=== PATIENT | male | born 1975 | race Caucasian/White ===

== ENCOUNTER 2017-07-27 17:43 | Inpatient (IN) | payer OTHER, MEDICARE, MEDICAID ==
[2017-07-27] MEDS ORDERED: Sodium Chloride 0.9% 10 ML Syringe FLUSH PRN (18:14)
--- NOTE | 2017-07-27 19:00 | EDM.PDOC ---
ED HPI GENERAL MEDICAL PROBLEM - General Chief Complaint: Skin Complaint Stated Complaint: [facility] Time Seen by Provider: 07/27/17 17:55 Source of Information: Reports: Patient, EMS History Limitations: Reports: No Limitations - History of Present Illness INITIAL COMMENTS - FREE TEXT/NARRATIVE: The patient presents with right leg swelling and erythema. He says he first noticed it yesterday. He has chills but no fever. He has a history of a cervical spine injury. He has partial paralysis. He can walk with assistance such as a walker. He has no chest pain, shortness of breath, abdominal pain, nausea or vomiting. The patient says he has had infections before. The first time was in 2009. He has moderate to severe edema to the right leg with erythema that extends up his leg from his foot to his lower lateral thigh. There is some oozing and a bad order. Onset: Gradual Duration: Day(s): Location: Reports: Lower Extremity, Right Improves with: Reports: None Worsens with: Reports: None Associated Symptoms: Reports: Fever/Chills. Denies: Chest Pain, Cough, Diaphoresis, Headaches, Nausea/Vomiting, Shortness of Breath Right Leg Pain Score (Numeric/FACES): 4 - Related Data Allergies Allergy/AdvReac Type Severity Reaction Status Date / Time No Known Allergies Allergy Verified 07/27/17 17:53 Home Meds: Home Meds Aspirin [Halfprin] 81 mg PO DAILY 07/27/17 [History] Baclofen [Lioresal Intrathecal] 07/27/17 [History] Multivitamin with Minerals [Multiple Vitamin] 07/27/17 [History] Past Medical History Musculoskeletal History: Reports: Back Pain, Chronic Dermatologic History: Reports: Chronic Cellulitis - Past Surgical History Neurological Surgical History: Reports: C-Spine Other Neurological Surgeries/Procedures: patient had injury in 2005 to his c3-c7 Social & Family History - Tobacco Use Smoking Status *Q: Former Smoker Used Tobacco, but Quit: Yes Month/Year Tobacco Last Used: 1 ED ROS GENERAL - Review of Systems Review Of Systems: See Below Constitutional: Reports: Chills HEENT: Reports: No Symptoms Respiratory: Reports: No Symptoms Cardiovascular: Reports: No Symptoms Endocrine: Reports: No Symptoms GI/Abdominal: Reports: No Symptoms : Reports: No Symptoms Musculoskeletal: Reports: Other (Edema and erythema of the right leg) ED EXAM, SKIN/RASH Exam: See Below Exam Limited By: No Limitations General Appearance: Alert, No Apparent Distress Ears: Normal External Exam Nose: Normal Inspection Head: Atraumatic, Normocephalic Neck: Normal Inspection Respiratory/Chest: No Respiratory Distress, Lungs Clear, Normal Breath Sounds Cardiovascular: Regular Rate, Rhythm, No Edema, No Murmur GI/Abdominal: Soft, Non-Tender, No Organomegaly, No Mass Back Exam: Normal Inspection Extremities: Other (Moderate to severe edema of the right leg with erythema extending from his foot up to his lower lateral thigh. There is weeping from his leg and a bad oder.) Course - Vital Signs Last Recorded V/S: Last Vital Signs Temp 101.8 F H 07/27/17 17:56 Pulse 106 H 07/27/17 17:56 Resp 20 07/27/17 17:56 BP 145/95 H 07/27/17 17:56 Pulse Ox 94 L 07/27/17 17:56 - Orders/Labs/Meds Orders: Active Orders 24 hr Category Date Time Status Peripheral IV Care [RC] . DIRECTED Care 07/27/17 18:15 Active CBC WITH AUTO DIFF [HEME] Stat Lab 07/27/17 18:14 Ordered COMPREHENSIVE METABOLIC PN,CMP [CHEM] Stat Lab 07/27/17 18:14 Ordered CULTURE BLOOD [BC] Stat Lab 07/27/17 18:15 Ordered CULTURE BLOOD [BC] Stat Lab 07/27/17 18:15 Ordered Sodium Chloride 0.9% [Normal Saline] 1,000 ml Med 07/27/17 18:15 Active IV ASDIRECTED Sodium Chloride 0.9% [Saline Flush] Med 07/27/17 18:14 Active 10 ml FLUSH ASDIRECTED PRN Blood Culture x2 Reflex Set [OM.PC] Stat Oth 07/27/17 18:15 Ordered Peripheral IV Insertion Adult [OM.PC] Stat Oth 07/27/17 18:14 Ordered Medication Orders Sodium Chloride (Normal Saline) 1,000 mls @ 125 mls/hr IV ASDIRECTED GEORGINA Sodium Chloride (Saline Flush) 10 ml FLUSH ASDIRECTED PRN PRN Reason: Keep Vein Open Meds: Medications Generic Name Dose Route Start Last Admin Trade Name Freq PRN Reason Stop Dose Admin Sodium Chloride 1,000 mls @ 125 mls/hr 07/27/17 18:15 Normal Saline IV ASDIRECTED GEORGINA Sodium Chloride 10 ml 07/27/17 18:14 Saline Flush FLUSH ASDIRECTED PRN Keep Vein Open - Re-Assessments/Exams Free Text/Narrative Re-Assessment/Exam: 07/27/17 19:06 I ordered an IV NS at 125mL/hr, blood cultures, labs and vancomycin. My nurses are having trouble getting an IV. Our EXTENSION COURSE COUNSELOR was called in to help. I will give him a dose of 2gram IV. 07/27/17 19:[address] Ramachandran and he agreed to the admission. He requested a PICC line be inserted. I will let the EXTENSION COURSE COUNSELOR know when he comes in. Departure - Departure Time of Disposition: 19:20 Disposition: Admitted As Inpatient 64 Condition: Fair Clinical Impression: Cellulitis Qualifiers: Site of cellulitis: extremity Site of cellulitis of extremity: lower extremity Laterality: right Qualified Code(s): L03.115 - Cellulitis of right lower limb - Discharge Information Referrals: Carlos Alicia MD [Primary Care Provider] - - My Orders Last 24 Hours: My Active Orders 07/27/17 18:14 CBC WITH AUTO DIFF [HEME] Stat COMPREHENSIVE METABOLIC PN,CMP [CHEM] Stat Sodium Chloride 0.9% [Saline Flush] 10 ml FLUSH ASDIRECTED PRN Peripheral IV Insertion Adult [OM.PC] Stat 07/27/17 18:15 Peripheral IV Care [RC] . DIRECTED CULTURE BLOOD [BC] Stat CULTURE BLOOD [BC] Stat Sodium Chloride 0.9% [Normal Saline] 1,000 ml IV ASDIRECTED Blood Culture x2 Reflex Set [OM.PC] Stat - Assessment/Plan Last 24 Hours: My Active Orders 07/27/17 18:14 CBC WITH AUTO DIFF [HEME] Stat COMPREHENSIVE METABOLIC PN,CMP [CHEM] Stat Sodium Chloride 0.9% [Saline Flush] 10 ml FLUSH ASDIRECTED PRN Peripheral IV Insertion Adult [OM.PC] Stat 07/27/17 18:15 Peripheral IV Care [RC] . DIRECTED CULTURE BLOOD [BC] Stat CULTURE BLOOD [BC] Stat Sodium Chloride 0.9% [Normal Saline] 1,000 ml IV ASDIRECTED Blood Culture x2 Reflex Set [OM.PC] Stat
[2017-07-27] MEDS ORDERED: Acetaminophen 325 MG Tab PO ONE (19:04)
--- NOTE | 2017-07-27 19:51 | PCM.HP ---
H&P History of Present Illness - General Date of Service: 07/27/17 Admit Problem/Dx: SSTI/Cellulitis Source of Information: Patient, Family, Old Records, Provider, RN Notes Reviewed History Limitations: Reports: Physical Impairment - History of Present Illness Initial Comments - Free Text/Narative: This is a 41 yo morbidly obese white male with past medical hx/o spinal injury on baclofen pump who comes in for evaluation of worsening leg edema and erythema. Patient carries no hx/o diabetes or immuno-suppressed state. His initial workup in the emergency department shows a CBC remarkable for WBC of 19.86, hemoglobin of 12.9, hematocrit of 39.6, RDW of 45.3, neutrophils of 81.8%, lymphocytes of 6.9%, and eosinophils 0.1%. His chemistry is remarkable for sodium of 135, total bilirubin of 2.7, AST of 51, CRP of 38.9, total protein of 8.3, and albumin of 2.1. He is being admitted for lower extremity cellulitis. Right Leg Pain Score (Numeric/FACES): 4 - Related Data Allergies/Adverse Reactions: Allergies Allergy/AdvReac Type Severity Reaction Status Date / Time No Known Allergies Allergy Verified 07/27/17 20:28 Home Medications: Home Meds Aspirin [Halfprin] 81 mg PO DAILY 07/27/17 [History] Baclofen [Lioresal Intrathecal] 0.5 mg IMPLANT ASDIRECTED 07/27/17 [History] Multivitamin with Minerals [Multiple Vitamin] 1 tab PO DAILY 07/27/17 [History] Past Medical History Musculoskeletal History: Reports: Back Pain, Chronic Dermatologic History: Reports: Chronic Cellulitis - Past Surgical History Neurological Surgical History: Reports: C-Spine Other Neurological Surgeries/Procedures: patient had injury in 2005 to his c3-c7 Social & Family History - Tobacco Use Smoking Status *Q: Former Smoker Used Tobacco, but Quit: Yes Month/Year Tobacco Last Used: 1 H&P Review of Systems - Review of Systems: Review Of Systems: See Below General: Reports: Fever, Chills. Denies: Malaise, Weakness, Fatigue, Decreased Appetite HEENT: Reports: No Symptoms Pulmonary: Denies: Shortness of Breath Cardiovascular: Reports: Edema. Denies: Chest Pain, Palpitations, Dyspnea on Exertion, Lightheadedness, Blood Pressure Problem Gastrointestinal: Denies: Abdominal Pain, Decreased Appetite, Nausea, Vomiting Genitourinary: Reports: No Symptoms Musculoskeletal: Reports: No Symptoms Skin: Reports: Erythema, Wound, Change in Color. Denies: Cyanosis, Jaundice, Mottled, Diaphoresis Psychiatric: Denies: Depression, Anxiety, Agitation, Hallucinations Neurological: Reports: Difficulty Walking, Gait Disturbance. Denies: Confusion , Pre-Existing Deficit, Weakness Hematologic/Lymphatic: Reports: No Symptoms Immunologic: Reports: No Symptoms Exam - Exam Exam: See Below - Vital Signs Vital Signs: Last Vital Signs Temp 38.8 C H 07/27/17 17:56 Pulse 106 H 07/27/17 17:56 Resp 20 07/27/17 17:56 BP 145/95 H 07/27/17 17:56 Pulse Ox 94 L 07/27/17 17:56 Weight: 204.117 kg - Exam General: Alert, Oriented, Cooperative, Other (Morbidly Obese). No: Mild Distress HEENT: Conjunctiva Clear, EACs Clear, EOMI, Hearing Intact, Mucosa Moist & [place] , Nares Patent, Normal Nasal Septum, Posterior Pharynx Clear, Pupils Equal, Pupils Reactive Neck: Supple, Trachea Midline, +2 Carotid Pulse wo Bruit, Full Range of Motion Lungs: Clear to Auscultation, Normal Respiratory Effort Cardiovascular: Regular Rate, Regular Rhythm GI/Abdominal Exam: Normal Bowel Sounds, Soft, Non-Tender, No Organomegaly, No Distention, No Abnormal Bruit, No Mass, Other (Obese; baclofen pump on lower abdomen ) (Male) Exam: Other (foul smeel for pelvic region) Back Exam: Normal Inspection, Decreased Range of Motion Extremities: Normal Range of Motion (left), Normal Capillary Refill (left), Leg Pain, Limited Range of Motion (right leg), Increased Warmth (right leg: weeping) , Redness (right leg), Other (toe nails are brittle and thickened). No: Normal Inspection Peripheral Pulses: 2+: Posterior Tibial (L), Posterior Tibial (R), Dorsalis Pedis (L), Dorsalis Pedis (R) Skin: Warm, Dry, Intact, Moist (inguinal and rosey-rectal region; with foul smell ) Neuro Extensive - Mental Status: Oriented x3, Normal Mood/Affect, Memory Intact Neuro Extensive - Motor, Sensory, Reflexes: CN II-XII Intact (limited but grossly intact) Psychiatric: Alert, Normal Affect, Normal Mood - Patient Data Result Diagrams: 07/28/17 05:57 07/28/17 05:57 *Q Meaningful Use (ADM) - VTE *Q VTE Criteria *Q: - Stroke *Q Stroke Criteria *Q: - AMI *Q AMI Criteria *Q: Problem List Initiated/Reviewed/Updated: Yes Orders Last 24hrs: Active Orders 24 hr Category Date Time Status Peripheral IV Care [RC] . DIRECTED Care 07/27/17 18:15 Active CBC WITH AUTO DIFF [HEME] Stat Lab 07/27/17 18:14 Ordered COMPREHENSIVE METABOLIC PN,CMP [CHEM] Stat Lab 07/27/17 18:14 Ordered CULTURE BLOOD [BC] Stat Lab 07/27/17 18:15 Ordered CULTURE BLOOD [BC] Stat Lab 07/27/17 18:15 Ordered Sodium Chloride 0.9% [Normal Saline] 1,000 ml Med 07/27/17 18:15 Active IV ASDIRECTED Sodium Chloride 0.9% [Saline Flush] Med 07/27/17 18:14 Active 10 ml FLUSH ASDIRECTED PRN Vancomycin 2 gm Med 07/27/17 19:15 Active Sodium Chloride 0.9% [Normal Saline] 250 ml IV ONETIME Blood Culture x2 Reflex Set [OM.PC] Stat Oth 07/27/17 18:15 Ordered Peripheral IV Insertion Adult [OM.PC] Stat Oth 07/27/17 18:14 Ordered Medication Orders Sodium Chloride (Normal Saline) 1,000 mls @ 125 mls/hr IV ASDIRECTED GEORGINA Vancomycin HCl 2 gm/ Sodium (Chloride) 250 mls @ 250 mls/hr IV ONETIME ONE Stop: 07/27/17 20:14 Sodium Chloride (Saline Flush) 10 ml FLUSH ASDIRECTED PRN PRN Reason: Keep Vein Open Assessment/Plan Comment:: Assessment/Plan: Acute: SSTI/Cellulitis - Risk Factors: Immobile the most part and Poor Hygiene - He is not diabetic - Weeping, diffusely red and edematous right leg - IV Vancomycin 1 gram BID (trough level goal bet 15-20) - Elevate Leg and supportive care - Duplex U/S to r/o DVT - DVT PPx: Lovenox SubQ x1 now Leukocytosis - 2/2 Above infection - WBC 19.86; CRP 38.9 Hypoalbuminemia - Albumin 2.1 - Dietary consult Morbid Obesity - BMI 56.2 - Thyroid panel and A1C check - Dietary for weight management Spinal Injury with Chronic Back Spasm - On Baclofen pump Plan: Admit to the floor Resume Home Meds if there are any Routine AM Labs PT for wound care Fall Risk GI PPx: H2B SW/CM for d/c planning Additional orders as above Code status: 1
[2017-07-27] MEDS: Sodium Chloride 0.9% 1,000 ML IV SCH (20:25)
--- NOTE | 2017-07-27 20:34 | PCM.SN ---
- Free Text/Narrative Note: 1913 in room 5 ER for IV request. 22 ga. start right anticubital good blood return good flush. 24. ga. start left foot good blood return good flush. 12 ml blood collected for lab. IVs secured. Out of room at 2027. Report to CHARU.
[2017-07-27] MEDS ORDERED: Sodium Chloride 0.9% 500 ML ONE (20:35)
[2017-07-27] MEDS ORDERED: Vancomycin 2 GM in Sodium Chloride 0.9% 500 ML IV ONE (20:45)
[2017-07-27] MEDS ORDERED: Albuterol/Ipratropium 3.0-0.5 MG/3 ML Neb Soln NEB PRN (20:50)
[2017-07-27] MEDS ORDERED: Metoprolol Tartrate 5 MG/5 ML SDV IVPUSH PRN (20:50)
[2017-07-27] MEDS ORDERED: Bisacodyl 5 MG Tab PO PRN (20:50)
[2017-07-27] MEDS ORDERED: LORazepam 2 MG/ML SDV IVPUSH PRN (20:50)
[2017-07-27] MEDS ORDERED: Ondansetron 4 MG/2 ML SDV IV PRN (20:50)
[2017-07-27] MEDS ORDERED: hydrALAZINE 20 MG/ML SDV IVPUSH PRN (20:50)
[2017-07-27] MEDS ORDERED: Polyethylene Glycol 3350 Powder 17 GM Packet PO PRN (20:50)
[2017-07-27] MEDS ORDERED: Temazepam 15 MG Cap PO PRN (20:50)
[2017-07-27] MEDS ORDERED: Promethazine 12.5 MG in Sodium Chloride 0.9% 50 ML IV PRN (20:50)
[2017-07-27] MEDS ORDERED: HYDROmorphone 1 MG/ML Syringe IVPUSH PRN (20:50)
[2017-07-27] MEDS ORDERED: Acetaminophen 325 MG Tab PO PRN (20:50)
[2017-07-27] MEDS ORDERED: LORazepam 2 MG/ML SDV IV PRN (20:50)
[2017-07-27] MEDS ORDERED: Docusate Sodium 100 MG Cap PO PRN (20:50)
[2017-07-27] MEDS ORDERED: Acetaminophen/HYDROcodone 325-5 MG Tab PO PRN (20:50)
[2017-07-27] MEDS ORDERED: Enoxaparin 40 MG/0.4 ML Syringe SUBCUT ONE (21:20)
[2017-07-27] MEDS ORDERED: Bumetanide 1 MG/4 ML MDV IVPUSH ONE (21:37)
--- NOTE | 2017-07-28 06:45 | US ---
Right lower extremity deep venous ultrasound: Duplex and color flow imaging was obtained of the right common femoral, proximal greater saphenous, superficial femoral, popliteal, posterior tibial and peroneal veins. Left common femoral vein was also evaluated. Subcutaneous edema is noted within the right calf. Several lymph nodes are seen within the right calf which are likely reactive. Several lymph nodes are noted within the right inguinal region which are also felt to be reactive. Normal phasic flow, augmentation and compression are seen. Impression: 1. Lymph nodes within the right groin and right calf believed to be reactive. 2. Subcutaneous edema within the calf. 3. No evidence of acute deep venous thrombosis within the right lower extremity or within the left common femoral vein. Diagnostic code #2 I agree with preliminary report issued by [facility] ([facility] preliminary report dictated on 07/28/17, 12:34 AM Central Time)
[2017-07-28] MEDS ORDERED: Vancomycin 2 GM in Sodium Chloride 0.9% 500 ML IV SCH (07:00)
[2017-07-28] MEDS ORDERED: Vancomycin 500 MG SDV IV SCH (07:00)
[2017-07-28] MEDS ORDERED: Bumetanide 1 MG/4 ML MDV IVPUSH ONE ×2 (07:00→23:30)
[2017-07-28] MEDS ORDERED: Enoxaparin 40 MG/0.4 ML Syringe SUBCUT SCH (09:00)
--- NOTE | 2017-07-28 09:01 | PCM.PN ---
- General Info Date of Service: 07/28/17 Admission Dx/Problem (Free Text): SSTI/Cellulitis Subjective Update: Follow Up Functional Status: Reports: Pain Controlled, Tolerating Diet, Urinating - Review of Systems General: Denies: Fever, Weakness, Fatigue, Malaise, Chills HEENT: Reports: No Symptoms Pulmonary: Denies: Shortness of Breath, Pleuritic Chest Pain, Wheezing Cardiovascular: Reports: Edema. Denies: Chest Pain, Palpitations, Dyspnea on Exertion, Lightheadedness Gastrointestinal: Denies: Abdominal Pain, Nausea, Vomiting Genitourinary: Reports: No Symptoms Musculoskeletal: Reports: No Symptoms Skin: Denies: Cyanosis, Jaundice, Mottled, Pallor, Diaphoresis Neurological: Reports: Pre-Existing Deficit, Difficulty Walking, Weakness, Gait Disturbance. Denies: Confusion Psychiatric: Denies: Depression, Anxiety, Agitation, Hallucinations Systems Review Comment:: No significant overnight or acute issues. He slept pretty good last night. He has no acute issues. - Patient Data Vitals - Most Recent: Last Vital Signs Temp 37.3 C 07/28/17 08:09 Pulse 88 07/28/17 08:09 Resp 24 H 07/28/17 08:09 BP 147/74 H 07/28/17 08:09 Pulse Ox 95 07/28/17 08:09 Weight - Most Recent: 204.117 kg I&O - Last 24 Hours: Intake & Output 07/27/17 07/28/17 07/28/17 22:59 06:59 14:59 Intake Total 1820 Output Total 800 Balance 1020 Lab Results Last 24 Hours: Laboratory Results - last 24 hr 07/27/17 07/27/17 07/28/17 Range/Units 21:10 21:10 05:57 WBC 18.92 H (4.23-9.07) K/mm3 RBC 4.34 L (4.63-6.08) M/mm3 Hgb 11.8 L (13.7-17.5) gm/L Hct 35.6 L (40.1-51.0) % MCV 82.0 (79.0-92.2) fl MCH 27.2 (25.7-32.2) pg MCHC 33.1 (32.2-35.5) g/dl RDW Std Deviation 45.3 H (35.1-43.9) fL Plt Count 270 (163-337) K/mm3 MPV 11.9 (9.4-12.3) fl Neut % (Auto) 81.0 H (34.0-67.9) % Lymph % (Auto) 8.1 L (21.8-53.1) % [place] % (Auto) 9.7 (5.3-12.2) % Eos % (Auto) 0.4 L (0.8-7.0) Baso % (Auto) 0.2 (0.1-1.2) % Neut # (Auto) 15.31 H (1.78-5.38) K/mm3 Lymph # (Auto) 1.53 (1.32-3.57) K/mm3 [place] # (Auto) 1.84 H (0.30-0.82) K/mm3 Eos # (Auto) 0.08 (0.04-0.54) K/mm3 Baso # (Auto) 0.04 (0.01-0.08) K/mm3 Manual Slide Review Abnormal smear Sodium (136-145) mEq/L Potassium (3.5-5.1) mEq/L Chloride (98-107) mEq/L Carbon Dioxide (21-32) mEq/L Anion Gap (5-15) BUN (7-18) mg/dL Creatinine (0.7-1.3) mg/dL Est Cr Clr Drug Dosing mL/min Estimated GFR (MDRD) (>60) mL/min BUN/Creatinine Ratio (14-18) Glucose (74-106) mg/dL Hemoglobin A1c 6.10 (4.50-6.20) % Calcium (8.5-10.1) mg/dL Magnesium (1.8-2.4) mg/dl C-Reactive Protein 38.9 H* (<1.0) mg/dL Free T4 1.56 H (0.76-1.46) ng/dL TSH 3rd Generation 1.753 (0.358-3.74) uIU/mL 07/28/17 Range/Units 05:57 WBC (4.23-9.07) K/mm3 RBC (4.63-6.08) M/mm3 Hgb (13.7-17.5) gm/L Hct (40.1-51.0) % MCV (79.0-92.2) fl MCH (25.7-32.2) pg MCHC (32.2-35.5) g/dl RDW Std Deviation (35.1-43.9) fL Plt Count (163-337) K/mm3 MPV (9.4-12.3) fl Neut % (Auto) (34.0-67.9) % Lymph % (Auto) (21.8-53.1) % [place] % (Auto) (5.3-12.2) % Eos % (Auto) (0.8-7.0) Baso % (Auto) (0.1-1.2) % Neut # (Auto) (1.78-5.38) K/mm3 Lymph # (Auto) (1.32-3.57) K/mm3 [place] # (Auto) (0.30-0.82) K/mm3 Eos # (Auto) (0.04-0.54) K/mm3 Baso # (Auto) (0.01-0.08) K/mm3 Manual Slide Review Sodium 138 (136-145) mEq/L Potassium 2.8 L (3.5-5.1) mEq/L Chloride 101 (98-107) mEq/L Carbon Dioxide 28 (21-32) mEq/L Anion Gap 11.8 (5-15) BUN 13 (7-18) mg/dL Creatinine 1.0 (0.7-1.3) mg/dL Est Cr Clr Drug Dosing 113.84 mL/min Estimated GFR (MDRD) > 60 (>60) mL/min BUN/Creatinine Ratio 13.0 L (14-18) Glucose 113 H (74-106) mg/dL Hemoglobin A1c (4.50-6.20) % Calcium 8.4 L (8.5-10.1) mg/dL Magnesium 1.9 (1.8-2.4) mg/dl C-Reactive Protein 36.3 H* (<1.0) mg/dL Free T4 (0.76-1.46) ng/dL TSH 3rd Generation (0.358-3.74) uIU/mL Samir Results Last 24 Hours: Microbiology 07/27/17 21:20 Wound Culture - Preliminary Leg, Right Med Orders - Current: Current Medications Acetaminophen (Tylenol) 650 mg PO Q4H PRN PRN Reason: Pain (Mild 1-3)/fever Hydrocodone Bitart/Acetaminophen ([place] 325-5 Mg) 1 tab PO Q4H PRN PRN Reason: Pain (moderate 4-6) Albuterol/Ipratropium (Duoneb 3.0-0.5 Mg/3 Ml) 3 ml NEB Q4H PRN PRN Reason: Shortness Of Breath/wheezing Bisacodyl (Dulcolax) 5 mg PO DAILY PRN PRN Reason: Constipation Docusate Sodium (Colace) 100 mg PO BID PRN PRN Reason: Constipation Enoxaparin Sodium (Lovenox) 40 mg SUBCUT DAILY [facility] Last Admin: 07/28/17 08:27 Dose: 40 mg Hydralazine HCl (Apresoline) 20 mg IVPUSH Q4H PRN PRN Reason: Hypertension Hydromorphone HCl (Dilaudid) 1 mg IVPUSH Q4H PRN PRN Reason: Pain (severe 7-10) Sodium Chloride (Normal Saline) 1,000 mls @ 125 mls/hr IV ASDIRECTED [facility] Last Admin: 07/27/17 20:25 Dose: 125 mls/hr Promethazine HCl 12.5 mg/ (Sodium Chloride) 50.5 mls @ 100 mls/hr IV Q6H PRN PRN Reason: Nausea/Vomiting Vancomycin HCl 2 gm/ Sodium (Chloride) 500 mls @ 250 mls/hr IV Q12H [facility] Last Admin: 07/28/17 08:16 Dose: 250 mls/hr Lorazepam (Ativan) 2 mg IVPUSH Q4H PRN PRN Reason: Seizures Lorazepam (Ativan) 1 mg IV Q6H PRN PRN Reason: Anxiety Magnesium Sulfate (Pharmacy To Dose - Magnesium Replacement) 0 dose .XX ASDIRECTED PRN PRN Reason: RX TO WATCH MAG LEVELS Metoprolol Tartrate (Lopressor) 5 mg IVPUSH Q4H PRN PRN Reason: Tachycardia Ondansetron HCl (Zofran) 4 mg IV Q6H PRN PRN Reason: Nausea/Vomiting Polyethylene Glycol (Miralax) 17 gm PO DAILY PRN PRN Reason: Constipation Potassium Chloride (Pharmacy To Dose - Potassium Replacement) 0 dose .XX ASDIRECTED PRN PRN Reason: RX TO WATCH K LEVELS Senna/Docusate Sodium (Senna Plus) 1 tab PO BID PRN PRN Reason: Constipation Sodium Chloride (Saline Flush) 10 ml FLUSH ASDIRECTED PRN PRN Reason: Keep Vein Open Last Admin: 07/27/17 20:25 Dose: 10 ml Temazepam (Restoril) 15 mg PO BEDTIME PRN PRN Reason: Sleep Vancomycin HCl (Pharmacy To Dose - Vancomycin) 0 dose .XX ASDIRECTED PRN PRN Reason: RX TO DOSE VANCOMYCIN Discontinued Medications Acetaminophen (Tylenol) 975 mg PO NOW ONE Stop: 07/27/17 19:05 Last Admin: 07/27/17 20:24 Dose: 975 mg Bumetanide (Bumex) 0.5 mg IVPUSH ONETIME ONE Stop: 07/28/17 07:01 Last Admin: 07/28/17 08:25 Dose: 0.5 mg Bumetanide (Bumex) 1 mg IVPUSH ONETIME ONE Stop: 07/27/17 21:38 Last Admin: 07/27/17 22:25 Dose: 1 mg Enoxaparin Sodium (Lovenox) 40 mg SUBCUT DAILY [facility] Enoxaparin Sodium (Lovenox) 40 mg SUBCUT ONETIME ONE Stop: 07/27/17 21:21 Last Admin: 07/27/17 22:23 Dose: 40 mg Vancomycin HCl 2 gm/ Sodium (Chloride) 250 mls @ 250 mls/hr IV ONETIME ONE Stop: 07/27/17 20:14 Last Admin: 07/27/17 20:44 Dose: Not Given Vancomycin HCl 2 gm/ Sodium (Chloride) 500 mls @ 250 mls/hr IV ONETIME ONE Stop: 07/27/17 22:44 Last Admin: 07/27/17 20:35 Dose: 250 mls/hr Sodium Chloride (Normal Saline) Confirm Administered Dose 500 mls @ as directed .ROUTE .STK-MED ONE Stop: 07/27/17 20:36 Vancomycin HCl (Vancomycin) 3,061.755 mg 15 mg/kg (3061.755 mg) IV Q12H [facility] - Exam General: Alert, Oriented, Cooperative, No Acute Distress, Other (Obese) HEENT: Pupils Equal, Pupils Reactive, EOMI, Mucous Membr. Moist/[place] Neck: Supple, Trachea Midline, No JVD Lungs: Clear to Auscultation, Normal Respiratory Effort Cardiovascular: Regular Rate, Regular Rhythm GI/Abdominal Exam: Normal Bowel Sounds, Soft, Non-Tender, No Organomegaly, No Distention, No Abnormal Bruit, Other (baclofen pump on right lower abdomen) (Male) Exam: Deferred Back Exam: Normal Inspection, Decreased Range of Motion Extremities: Normal Range of Motion (left lower extremity), Non-Tender, Pedal Edema, Limited Range of Motion (right lower extremity), Increased Warmth, Redness Peripheral Pulses: 2+: Posterior Tibial (L), Dorsalis Pedis (L) Skin: Warm, Dry, Intact Wound/Incisions: Drainage, Erythema Improving Neurological: No New Focal Deficit. No: Normal Gait Psy/Mental Status: Alert, Normal Affect, Normal Mood - Problem List Review Problem List Initiated/Reviewed/Updated: Yes - My Orders Last 24 Hours: My Active Orders 07/27/17 20:50 Height and Weight [RC] 04 Oxygen Therapy [RC] PRN Up With Assistance [RC] ASDIRECTED Up ad Zoya [RC] ASDIRECTED VTE/DVT Education [RC] DAILY Vital Signs [RC] Q4HR Acetaminophen [Tylenol] 650 mg PO Q4H PRN Acetaminophen/HYDROcodone [[place] 325-5 MG] 1 tab PO Q4H PRN Albuterol/Ipratropium [DuoNeb 3.0-0.5 MG/3 ML] 3 ml NEB Q4H PRN Bisacodyl [Dulcolax] 5 mg PO DAILY PRN Docusate Sodium [Colace] 100 mg PO BID PRN Docusate Sodium/Sennosides [Senna Plus] 1 tab PO BID PRN HYDROmorphone [Dilaudid] 1 mg IVPUSH Q4H PRN LORazepam [Ativan] 1 mg IV Q6H PRN LORazepam [Ativan] 2 mg IVPUSH Q4H PRN Metoprolol Tartrate [Lopressor] 5 mg IVPUSH Q4H PRN Ondansetron [Zofran] 4 mg IV Q6H PRN Polyethylene Glycol 3350 [MiraLAX] 17 gm PO DAILY PRN Promethazine [Phenergan] 12.5 mg Sodium Chloride 0.9% [Normal Saline] 50 ml IV Q6H Temazepam [Restoril] 15 mg PO BEDTIME PRN hydrALAZINE [Apresoline] 20 mg IVPUSH Q4H PRN Resuscitation Status Routine 07/27/17 20:51 Intake and Output [RC] 04,16 07/27/17 20:53 RT Aerosol Therapy [RC] .PRN 07/27/17 20:58 Consult to Case Management [CONS] Routine Consult to Sociology Adjunct Instructor [CONS] Routine Consult to Test Tube Maker [CONS] Routine Consult to Spiritual Care [CONS] Routine OT Evaluation and Treatment [CONS] Routine PT Evaluation and Treatment [CONS] Routine 07/27/17 21:00 Magnesium Rep Pharmacy to Dose [Pharmacy to Dose - Magnesium Replacement] 0 dose .XX ASDIRECTED PRN Potassium Rep Pharmacy to Dose [Pharmacy to Dose - Potassium Replacement] 0 dose .XX ASDIRECTED PRN 07/27/17 21:15 Vancomycin Pharmacy to Dose [Pharmacy to Dose - Vancomycin] 0 dose .XX ASDIRECTED PRN 07/27/17 21:20 CULTURE WOUND [RM] Routine 07/27/17 Dinner Regular Diet [DIET] 07/28/17 00:10 PT Evaluation and Treatment [CONS] Routine 07/28/17 07:00 Vancomycin 2 gm Sodium Chloride 0.9% [Normal Saline] 500 ml IV Q12H 07/28/17 09:00 Enoxaparin [Lovenox] 40 mg SUBCUT DAILY 07/29/17 05:11 BASIC METABOLIC PANEL,BMP [CHEM] AM C-REACTIVE PROTEIN [CHEM] AM CBC WITH AUTO DIFF [HEME] AM MAGNESIUM [CHEM] AM 07/30/17 05:11 BASIC METABOLIC PANEL,BMP [CHEM] AM C-REACTIVE PROTEIN [CHEM] AM CBC WITH AUTO DIFF [HEME] AM MAGNESIUM [CHEM] AM 07/31/17 05:11 BASIC METABOLIC PANEL,BMP [CHEM] AM C-REACTIVE PROTEIN [CHEM] AM CBC WITH AUTO DIFF [HEME] AM MAGNESIUM [CHEM] AM - Plan Plan:: Assessment/Plan: Acute: SSTI/Cellulitis - Risk Factors: Immobile the most part and Poor Hygiene - He is not diabetic - Weeping, diffusely red and edematous right leg - IV Vancomycin 1 gram BID (trough level goal bet 15-20) - Elevate Leg and supportive care - Wound Cx-pending - Duplex U/S report reads lymph nodes within the right groin and right Marcus believed to be reactive. Subcutaneous edema within the pelvis. No evidence of acute DVT within the right lower extremity or within the left common femoral vein. - DVT PPx: Lovenox SubQ daily - Dr. Pittman consulted for further input Leukocytosis - 2/2 Above infection - WBC 19.86--18.92; CRP 38.9--> 36.3 Hypoalbuminemia - Albumin 2.1 - Dietary consult Morbid Obesity - BMI 56.2 - Thyroid panel and A1C check - Dietary for weight management Spinal Injury with Chronic Back Spasm - On Baclofen pump Plan: He is clinically stable Routine AM Labs Blood Cx negative PT for wound care Fall Risk GI PPx: H2B SW/CM for d/c planning Additional orders as above Code status: 1 Discussed Sub-acute unit like [facility] once medically stable. Patient is receptive to it. Informed CM/SW for d/c care plan.
--- NOTE | 2017-07-28 10:48 | PCM.CONSN ---
- General Info Date of Service: 07/28/17 - Patient Data Vitals - Most Recent: Last Vital Signs Temp 99.1 F 07/28/17 08:09 Pulse 88 07/28/17 08:09 Resp 24 H 07/28/17 08:09 BP 147/74 H 07/28/17 08:09 Pulse Ox 95 07/28/17 08:09 Weight - Most Recent: 191.371 kg I&O - Last 24 Hours: Intake & Output 07/27/17 07/28/17 07/28/17 23:59 07:59 15:59 Intake Total 1820 Output Total 800 Balance 1020 Lab Results Last 24 Hours: Laboratory Results - last 24 hr 07/27/17 07/27/17 07/28/17 Range/Units 21:10 21:10 05:57 WBC 18.92 H (4.23-9.07) K/mm3 RBC 4.34 L (4.63-6.08) M/mm3 Hgb 11.8 L (13.7-17.5) gm/L Hct 35.6 L (40.1-51.0) % MCV 82.0 (79.0-92.2) fl MCH 27.2 (25.7-32.2) pg MCHC 33.1 (32.2-35.5) g/dl RDW Std Deviation 45.3 H (35.1-43.9) fL Plt Count 270 (163-337) K/mm3 MPV 11.9 (9.4-12.3) fl Neut % (Auto) 81.0 H (34.0-67.9) % Lymph % (Auto) 8.1 L (21.8-53.1) % [place] % (Auto) 9.7 (5.3-12.2) % Eos % (Auto) 0.4 L (0.8-7.0) Baso % (Auto) 0.2 (0.1-1.2) % Neut # (Auto) 15.31 H (1.78-5.38) K/mm3 Lymph # (Auto) 1.53 (1.32-3.57) K/mm3 [place] # (Auto) 1.84 H (0.30-0.82) K/mm3 Eos # (Auto) 0.08 (0.04-0.54) K/mm3 Baso # (Auto) 0.04 (0.01-0.08) K/mm3 Manual Slide Review Abnormal smear Sodium (136-145) mEq/L Potassium (3.5-5.1) mEq/L Chloride (98-107) mEq/L Carbon Dioxide (21-32) mEq/L Anion Gap (5-15) BUN (7-18) mg/dL Creatinine (0.7-1.3) mg/dL Est Cr Clr Drug Dosing mL/min Estimated GFR (MDRD) (>60) mL/min BUN/Creatinine Ratio (14-18) Glucose (74-106) mg/dL Hemoglobin A1c 6.10 (4.50-6.20) % Calcium (8.5-10.1) mg/dL Magnesium (1.8-2.4) mg/dl C-Reactive Protein 38.9 H* (<1.0) mg/dL Free T4 1.56 H (0.76-1.46) ng/dL TSH 3rd Generation 1.753 (0.358-3.74) uIU/mL 07/28/17 Range/Units 05:57 WBC (4.23-9.07) K/mm3 RBC (4.63-6.08) M/mm3 Hgb (13.7-17.5) gm/L Hct (40.1-51.0) % MCV (79.0-92.2) fl MCH (25.7-32.2) pg MCHC (32.2-35.5) g/dl RDW Std Deviation (35.1-43.9) fL Plt Count (163-337) K/mm3 MPV (9.4-12.3) fl Neut % (Auto) (34.0-67.9) % Lymph % (Auto) (21.8-53.1) % [place] % (Auto) (5.3-12.2) % Eos % (Auto) (0.8-7.0) Baso % (Auto) (0.1-1.2) % Neut # (Auto) (1.78-5.38) K/mm3 Lymph # (Auto) (1.32-3.57) K/mm3 [place] # (Auto) (0.30-0.82) K/mm3 Eos # (Auto) (0.04-0.54) K/mm3 Baso # (Auto) (0.01-0.08) K/mm3 Manual Slide Review Sodium 138 (136-145) mEq/L Potassium 2.8 L (3.5-5.1) mEq/L Chloride 101 (98-107) mEq/L Carbon Dioxide 28 (21-32) mEq/L Anion Gap 11.8 (5-15) BUN 13 (7-18) mg/dL Creatinine 1.0 (0.7-1.3) mg/dL Est Cr Clr Drug Dosing 113.84 mL/min Estimated GFR (MDRD) > 60 (>60) mL/min BUN/Creatinine Ratio 13.0 L (14-18) Glucose 113 H (74-106) mg/dL Hemoglobin A1c (4.50-6.20) % Calcium 8.4 L (8.5-10.1) mg/dL Magnesium 1.9 (1.8-2.4) mg/dl C-Reactive Protein 36.3 H* (<1.0) mg/dL Free T4 (0.76-1.46) ng/dL TSH 3rd Generation (0.358-3.74) uIU/mL Samir Results Last 24 Hours: Microbiology 07/27/17 21:20 Wound Culture - Preliminary Leg, Right Med Orders - Current: Current Medications Acetaminophen (Tylenol) 650 mg PO Q4H PRN PRN Reason: Pain (Mild 1-3)/fever Hydrocodone Bitart/Acetaminophen ([place] 325-5 Mg) 1 tab PO Q4H PRN PRN Reason: Pain (moderate 4-6) Albuterol/Ipratropium (Duoneb 3.0-0.5 Mg/3 Ml) 3 ml NEB Q4H PRN PRN Reason: Shortness Of Breath/wheezing Bisacodyl (Dulcolax) 5 mg PO DAILY PRN PRN Reason: Constipation Docusate Sodium (Colace) 100 mg PO BID PRN PRN Reason: Constipation Enoxaparin Sodium (Lovenox) 40 mg SUBCUT DAILY [facility] Last Admin: 07/28/17 08:27 Dose: 40 mg Hydralazine HCl (Apresoline) 20 mg IVPUSH Q4H PRN PRN Reason: Hypertension Hydromorphone HCl (Dilaudid) 1 mg IVPUSH Q4H PRN PRN Reason: Pain (severe 7-10) Sodium Chloride (Normal Saline) 1,000 mls @ 125 mls/hr IV ASDIRECTED [facility] Last Admin: 07/27/17 20:25 Dose: 125 mls/hr Promethazine HCl 12.5 mg/ (Sodium Chloride) 50.5 mls @ 100 mls/hr IV Q6H PRN PRN Reason: Nausea/Vomiting Vancomycin HCl 2 gm/ Sodium (Chloride) 500 mls @ 250 mls/hr IV Q12H [facility] Last Admin: 07/28/17 08:16 Dose: 250 mls/hr Lorazepam (Ativan) 2 mg IVPUSH Q4H PRN PRN Reason: Seizures Lorazepam (Ativan) 1 mg IV Q6H PRN PRN Reason: Anxiety Magnesium Sulfate (Pharmacy To Dose - Magnesium Replacement) 0 dose .XX ASDIRECTED PRN PRN Reason: RX TO WATCH MAG LEVELS Metoprolol Tartrate (Lopressor) 5 mg IVPUSH Q4H PRN PRN Reason: Tachycardia Ondansetron HCl (Zofran) 4 mg IV Q6H PRN PRN Reason: Nausea/Vomiting Polyethylene Glycol (Miralax) 17 gm PO DAILY PRN PRN Reason: Constipation Potassium Chloride (Pharmacy To Dose - Potassium Replacement) 0 dose .XX ASDIRECTED PRN PRN Reason: RX TO WATCH K LEVELS Senna/Docusate Sodium (Senna Plus) 1 tab PO BID PRN PRN Reason: Constipation Sodium Chloride (Saline Flush) 10 ml FLUSH ASDIRECTED PRN PRN Reason: Keep Vein Open Last Admin: 07/27/17 20:25 Dose: 10 ml Temazepam (Restoril) 15 mg PO BEDTIME PRN PRN Reason: Sleep Vancomycin HCl (Pharmacy To Dose - Vancomycin) 0 dose .XX ASDIRECTED PRN PRN Reason: RX TO DOSE VANCOMYCIN Discontinued Medications Acetaminophen (Tylenol) 975 mg PO NOW ONE Stop: 07/27/17 19:05 Last Admin: 07/27/17 20:24 Dose: 975 mg Bumetanide (Bumex) 0.5 mg IVPUSH ONETIME ONE Stop: 07/28/17 07:01 Last Admin: 07/28/17 08:25 Dose: 0.5 mg Bumetanide (Bumex) 1 mg IVPUSH ONETIME ONE Stop: 07/27/17 21:38 Last Admin: 07/27/17 22:25 Dose: 1 mg Enoxaparin Sodium (Lovenox) 40 mg SUBCUT DAILY [facility] Enoxaparin Sodium (Lovenox) 40 mg SUBCUT ONETIME ONE Stop: 07/27/17 21:21 Last Admin: 07/27/17 22:23 Dose: 40 mg Vancomycin HCl 2 gm/ Sodium (Chloride) 250 mls @ 250 mls/hr IV ONETIME ONE Stop: 07/27/17 20:14 Last Admin: 07/27/17 20:44 Dose: Not Given Vancomycin HCl 2 gm/ Sodium (Chloride) 500 mls @ 250 mls/hr IV ONETIME ONE Stop: 07/27/17 22:44 Last Admin: 07/27/17 20:35 Dose: 250 mls/hr Sodium Chloride (Normal Saline) Confirm Administered Dose 500 mls @ as directed .ROUTE .STK-MED ONE Stop: 07/27/17 20:36 Vancomycin HCl (Vancomycin) 3,061.755 mg 15 mg/kg (3061.755 mg) IV Q12H [facility] Consult PN Assessment/Plan Procedures: Procedures CULTURE AEROBIC IDENTIFY (02/13/14) CULTURE OTHR SPECIMN AEROBIC (02/13/14) MICROBE SUSCEPTIBLE SAMIR (02/13/14) Problem List Initiated/Reviewed/Updated: Yes Plan: surgical consult dictated JMB
[2017-07-28] MEDS: Sodium Chloride 0.9% 1,000 ML IV SCH ×2 (15:34→23:45)
[2017-07-28] MEDS: Vancomycin 2 GM in Sodium Chloride 0.9% 500 ML IV SCH (15:35)
[2017-07-28] MEDS ORDERED: BACLOFEN PUMP PO PRN (15:58)
[2017-07-28] MEDS ORDERED: Potassium Chloride 10 MEQ in Premix Bag 1 BAG IV SCH (16:00)
[2017-07-28] MEDS: Potassium Chloride 10 MEQ in Premix Bag 1 BAG IV SCH ×6 (18:04→23:46)
--- NOTE | 2017-07-28 18:39 | PCM.SN ---
- Free Text/Narrative Note: 07/28/17 [id number] PICC permit signed. PICC line attempted. Unable to thread introducer wire up 22 guage right antecubital from current IV that is A in place. Ultrasound used for attempt times 1 right upper arm. Unable to advance needle. Will abort at this time- Inform APARTMENT MAINTENANCE SUPERVISOR tomorrow if still needed. Patient tolerated procedure well. IV started 20 guage left forarm times 1 attempt. [email or web address]
[2017-07-29] MEDS: Vancomycin 2 GM in Sodium Chloride 0.9% 500 ML IV SCH ×2 (00:59→15:12)
[2017-07-29] MEDS: Sodium Chloride 0.9% 1,000 ML IV SCH ×2 (07:56→16:26)
--- NOTE | 2017-07-29 08:18 | CONS ---
CONSULTING PHYSICIAN: Mynor Pittman MD DATE OF CONSULTATION: 07/28/2017 HISTORY: This is a 41-year-old who comes in with swelling, cellulitis and lymphangitis of the right leg. It started over the weekend. He came into the hospital through the emergency room on 07/27/2017. The patient states that he does not walk and transfers mainly with a wheelchair as a result of cervical injury. He has a baclofen pump in to control spasm. The injury occurred in 2005. The patient has had cellulitis in the past. The patient states that, when not infected, he has just some chronic swelling in both legs. Ultrasound was done and has not shown any deep vein thrombosis. PAST MEDICAL HISTORY: Morbid obesity. SOCIAL HISTORY: He was a former smoker, he has stopped. ALLERGIES: No known allergies. PAST SURGICAL HISTORY: Spine surgery. REVIEW OF SYSTEMS: No chest pain, shortness of breath, cough, hoarseness, wheezing, fainting, weakness, numbness, or convulsions. PHYSICAL EXAMINATION: GENERAL: Temperature 38, pulse 106, respirations 20, and blood pressure is 147/74. HEENT: Eyes, sclerae white. Oral cavity healthy. NECK: Supple. LUNGS: Clear. HEART: Tones regular rate. ABDOMEN: Soft. No tenderness, guarding, or rebound. EXTREMITIES: Upper extremities, negative. Lower extremities shows swelling with evidence of chronic lymphedema. There is cellulitis with redness in the leg extending up towards the knee and some into the thigh with weeping of serous fluid. The toes are spared. It is mostly around the ankle, along the calf, anterior tibial area. It is evidenced that pulses are not palpable, but both feet are warm. NEUROLOGIC: No sensorineural deficit. There is some chronic hyperreflexia in the right leg. SKIN: Warm and dry. SENSORIUM: He is alert and cooperative. PSYCHIATRIC: Normal. ASSESSMENT: Cellulitis, lymphangitis of the left leg. RECOMMENDATION: Antibiotics and elevation. I would like to see his activity increased, but this might not be possible given his cervical spine injury. MMODAL /[id number]
[2017-07-29] MEDS ORDERED: Vancomycin 1 GM, Vancomycin 500 MG in Sodium Chloride 0.9% 500 ML IV SCH (08:21)
[2017-07-29] MEDS: Enoxaparin 60 MG/0.6 ML Syringe SUBCUT SCH (08:42)
--- NOTE | 2017-07-29 09:29 | PCM.SN ---
- Free Text/Narrative Note: Previous failed PICC line placement last evening. Dr. Ramachandran requesting another attempt. I spoke with the patient he is agreeable to another attempt at this time. Ultrasound used to identify the brachiocephalic vein. Attempted in both the right and left arm without success. Able to obtain a flash with the IV catheter inserted to the maximum depth, but unable to advance the wire for PICC placement. Spoke with Dr. Coleman following the procedure. I recommended the need for a PICC line placement by radiology. Nuno states he has had a PICC line before that was placed by a radiologist at the [facility].
[2017-07-29] MEDS: Potassium Chloride 20 MEQ Tab.ER PO SCH ×3 (10:10→20:35)
[2017-07-29] MEDS: Vancomycin 1 GM, Vancomycin 500 MG in Sodium Chloride 0.9% 500 ML IV SCH ×2 (10:11→18:41)
--- NOTE | 2017-07-29 14:57 | PCM.PN ---
- General Info Date of Service: 07/29/17 Admission Dx/Problem (Free Text): SSTI/Cellulitis Subjective Update: In to see Nuno. He is sitting in his motorized chair. He is reporting very mild pain in his right leg. He is reclined in his chair and legs are elevated. Leg has a chucks pad around it and there has been some drainage. He reports improved appetite. Dr. Sargent was in to look at his feet today and was going to remove a toe nail but he was missing some equipment. Plan is to remove this tomorrow AM. He has no complaints or concerns. Nursing notes no concerns. Functional Status: Reports: Pain Controlled, Tolerating Diet, Urinating. Denies : New Symptoms - Review of Systems General: Reports: No Symptoms, Appetite. Denies: Fever, Weakness, Fatigue, Malaise HEENT: Reports: No Symptoms Pulmonary: Reports: No Symptoms. Denies: Shortness of Breath, Cough, Sputum, Wheezing Cardiovascular: Reports: Edema. Denies: Chest Pain, Palpitations Gastrointestinal: Reports: No Symptoms. Denies: Abdominal Pain, Constipation, Diarrhea, Nausea, Vomiting Genitourinary: Reports: No Symptoms Musculoskeletal: Reports: No Symptoms Skin: Reports: No Symptoms Neurological: Reports: Pre-Existing Deficit, Difficulty Walking, Gait Disturbance Psychiatric: Reports: No Symptoms - Patient Data Vitals - Most Recent: Last Vital Signs Temp 97.9 F 07/29/17 11:55 Pulse 89 07/29/17 11:55 Resp 24 H 07/29/17 11:55 BP 127/70 07/29/17 11:55 Pulse Ox 94 L 07/29/17 11:55 Weight - Most Recent: 425 lb 6.4 oz I&O - Last 24 Hours: Intake & Output 07/28/17 07/29/17 07/29/17 22:59 06:59 14:59 Intake Total 3091 3466 240 Output Total 400 1925 Balance 2691 1541 240 Lab Results Last 24 Hours: Laboratory Results - last 24 hr 07/29/17 07/29/17 07/29/17 Range/Units 06:25 06:25 07:40 WBC 13.02 H (4.23-9.07) K/mm3 RBC 4.33 L (4.63-6.08) M/mm3 Hgb 11.5 L (13.7-17.5) gm/L Hct 35.5 L (40.1-51.0) % MCV 82.0 (79.0-92.2) fl MCH 26.6 (25.7-32.2) pg MCHC 32.4 (32.2-35.5) g/dl RDW Std Deviation 46.0 H (35.1-43.9) fL Plt Count 331 (163-337) K/mm3 MPV 11.4 (9.4-12.3) fl Neut % (Auto) 74.2 H (34.0-67.9) % Lymph % (Auto) 13.5 L (21.8-53.1) % [place] % (Auto) 9.1 (5.3-12.2) % Eos % (Auto) 1.2 (0.8-7.0) Baso % (Auto) 0.5 (0.1-1.2) % Neut # (Auto) 9.68 H (1.78-5.38) K/mm3 Lymph # (Auto) 1.76 (1.32-3.57) K/mm3 [place]at # (Auto) 1.18 H (0.30-0.82) K/mm3 Eos # (Auto) 0.15 (0.04-0.54) K/mm3 Baso # (Auto) 0.06 (0.01-0.08) K/mm3 Manual Slide Review Abnormal smear Sodium 141 (136-145) mEq/L Potassium 3.0 L (3.5-5.1) mEq/L Chloride 105 (98-107) mEq/L Carbon Dioxide 28 (21-32) mEq/L Anion Gap 11.0 (5-15) BUN 12 (7-18) mg/dL Creatinine 1.0 (0.7-1.3) mg/dL Est Cr Clr Drug Dosing 113.84 mL/min Estimated GFR (MDRD) > 60 (>60) mL/min BUN/Creatinine Ratio 12.0 L (14-18) Glucose 105 (74-106) mg/dL Calcium 8.5 (8.5-10.1) mg/dL Magnesium 1.8 (1.8-2.4) mg/dl C-Reactive Protein 28.6 H* (<1.0) mg/dL Vancomycin Trough 24.5 H (10.0-20.0) Samir Results Last 24 Hours: Microbiology 07/27/17 21:20 Wound Culture - Preliminary Leg, Right 07/27/17 21:10 Aerobic Blood Culture - Preliminary Blood - Venous - Lab Draw NO GROWTH AFTER 1 DAY Anaerobic Blood Culture - Preliminary NO GROWTH AFTER 1 DAY Med Orders - Current: Current Medications Acetaminophen (Tylenol) 650 mg PO Q4H PRN PRN Reason: Pain (Mild 1-3)/fever Hydrocodone Bitart/Acetaminophen ([place] 325-5 Mg) 1 tab PO Q4H PRN PRN Reason: Pain (moderate 4-6) Albuterol/Ipratropium (Duoneb 3.0-0.5 Mg/3 Ml) 3 ml NEB Q4H PRN PRN Reason: Shortness Of Breath/wheezing Baclofen (Lioresal) 0 mg PO ASDIRECTED PRN PRN Reason: PUMP IN PLACE Bisacodyl (Dulcolax) 5 mg PO DAILY PRN PRN Reason: Constipation Docusate Sodium (Colace) 100 mg PO BID PRN PRN Reason: Constipation Enoxaparin Sodium (Lovenox) 50 mg SUBCUT DAILY [facility] Last Admin: 07/29/17 08:42 Dose: 50 mg Hydralazine HCl (Apresoline) 20 mg IVPUSH Q4H PRN PRN Reason: Hypertension Hydromorphone HCl (Dilaudid) 1 mg IVPUSH Q4H PRN PRN Reason: Pain (severe 7-10) Sodium Chloride (Normal Saline) 1,000 mls @ 125 mls/hr IV ASDIRECTED [facility] Last Admin: 07/29/17 07:56 Dose: 125 mls/hr Promethazine HCl 12.5 mg/ (Sodium Chloride) 50.5 mls @ 100 mls/hr IV Q6H PRN PRN Reason: Nausea/Vomiting Vancomycin HCl 1 gm/Vancomycin HCl 500 mg/ Sodium Chloride 500 mls @ 250 mls/ hr IV Q8H [facility] Last Admin: 07/29/17 10:11 Dose: 250 mls/hr Lorazepam (Ativan) 2 mg IVPUSH Q4H PRN PRN Reason: Seizures Lorazepam (Ativan) 1 mg IV Q6H PRN PRN Reason: Anxiety Metoprolol Tartrate (Lopressor) 5 mg IVPUSH Q4H PRN PRN Reason: Tachycardia Ondansetron HCl (Zofran) 4 mg IV Q6H PRN PRN Reason: Nausea/Vomiting Polyethylene Glycol (Miralax) 17 gm PO DAILY PRN PRN Reason: Constipation Potassium Chloride (Klor-Con M20) 40 meq PO BID [facility] Stop: 07/31/17 09:01 Senna/Docusate Sodium (Senna Plus) 1 tab PO BID PRN PRN Reason: Constipation Sodium Chloride (Saline Flush) 10 ml FLUSH ASDIRECTED PRN PRN Reason: Keep Vein Open Last Admin: 07/27/17 20:25 Dose: 10 ml Temazepam (Restoril) 15 mg PO BEDTIME PRN PRN Reason: Sleep Vancomycin HCl (Pharmacy To Dose - Vancomycin) 0 dose .XX ASDIRECTED PRN PRN Reason: RX TO DOSE VANCOMYCIN Discontinued Medications Acetaminophen (Tylenol) 975 mg PO NOW ONE Stop: 07/27/17 19:05 Last Admin: 07/27/17 20:24 Dose: 975 mg Bumetanide (Bumex) 0.5 mg IVPUSH ONETIME ONE Stop: 07/28/17 07:01 Last Admin: 07/28/17 08:25 Dose: 0.5 mg Bumetanide (Bumex) 1 mg IVPUSH ONETIME ONE Stop: 07/27/17 21:38 Last Admin: 07/27/17 22:25 Dose: 1 mg Bumetanide (Bumex) 1 mg IVPUSH ONETIME ONE Stop: 07/28/17 23:31 Last Admin: 07/28/17 23:47 Dose: 1 mg Enoxaparin Sodium (Lovenox) 40 mg SUBCUT DAILY [facility] Enoxaparin Sodium (Lovenox) 40 mg SUBCUT DAILY [facility] Last Admin: 07/28/17 08:27 Dose: 40 mg Enoxaparin Sodium (Lovenox) 40 mg SUBCUT ONETIME ONE Stop: 07/27/17 21:21 Last Admin: 07/27/17 22:23 Dose: 40 mg Vancomycin HCl 2 gm/ Sodium (Chloride) 250 mls @ 250 mls/hr IV ONETIME ONE Stop: 07/27/17 20:14 Last Admin: 07/27/17 20:44 Dose: Not Given Vancomycin HCl 2 gm/ Sodium (Chloride) 500 mls @ 250 mls/hr IV ONETIME ONE Stop: 07/27/17 22:44 Last Admin: 07/27/17 20:35 Dose: 250 mls/hr Sodium Chloride (Normal Saline) Confirm Administered Dose 500 mls @ as directed .ROUTE .STK-MED ONE Stop: 07/27/17 20:36 Last Admin: 07/28/17 10:56 Dose: Not Given Vancomycin HCl 2 gm/ Sodium (Chloride) 500 mls @ 250 mls/hr IV Q12H [facility] Last Admin: 07/28/17 08:16 Dose: 250 mls/hr Vancomycin HCl 2 gm/ Sodium (Chloride) 500 mls @ 250 mls/hr IV Q8H [facility] Last Admin: 07/29/17 00:59 Dose: 250 mls/hr Potassium Chloride 10 meq/ (Premix) 100 mls @ 100 mls/hr IV Q1H [facility] Stop: 07/28/17 21:59 Potassium Chloride 10 meq/ (Premix) 100 mls @ 100 mls/hr IV Q1H [facility] Stop: 07/28/17 23:59 Last Admin: 07/28/17 23:46 Dose: 100 mls/hr Vancomycin HCl 1 gm/Vancomycin HCl 500 mg/ Sodium Chloride 500 mls @ 250 mls/ hr IV Q8H [facility] Magnesium Sulfate (Pharmacy To Dose - Magnesium Replacement) 0 dose .XX ASDIRECTED PRN PRN Reason: RX TO WATCH MAG LEVELS Potassium Chloride (Pharmacy To Dose - Potassium Replacement) 0 dose .XX ASDIRECTED PRN PRN Reason: RX TO WATCH K LEVELS Potassium Chloride (Klor-Con M20) 40 meq PO Q4H [facility] Stop: 07/29/17 13:46 Last Admin: 07/29/17 13:27 Dose: 40 meq Vancomycin HCl (Vancomycin) 3,061.755 mg 15 mg/kg (3061.755 mg) IV Q12H [facility] - Exam Quality Assessment: DVT Prophylaxis General: Alert, Oriented, Cooperative, No Acute Distress HEENT: Pupils Equal, Pupils Reactive, EOMI, Mucous Membr. Moist/[place] Neck: Supple, Trachea Midline, No JVD Lungs: Clear to Auscultation, Normal Respiratory Effort, Decreased Breath Sounds Cardiovascular: Regular Rate, Regular Rhythm GI/Abdominal Exam: Normal Bowel Sounds, Soft, Non-Tender, No Organomegaly, No Distention, No Abnormal Bruit, No Mass, Pelvis Stable, Other (Baclofen pump in right lower abdomen ) (Male) Exam: Deferred Extremities: Normal Range of Motion (left extremity ), Pedal Edema, Limited Range of Motion (right extermity ), Redness (right lower extremity - improved ) . No: Normal Inspection, Increased Warmth Peripheral Pulses: 2+: Radial (L), Radial (R), Dorsalis Pedis (L) Skin: Warm, Dry, Intact Wound/Incisions: Drainage, Erythema Improving Neurological: No New Focal Deficit Psy/Mental Status: Alert, Normal Affect, Normal Mood - Problem List & Annotations (1) Cellulitis SNOMED Code(s): 750905297 Code(s): L03.90 - CELLULITIS, UNSPECIFIED Status: Acute Priority: High Current Visit: Yes Qualifiers: Site of cellulitis: extremity Site of cellulitis of extremity: lower extremity Laterality: right Qualified Code(s): L03.115 - Cellulitis of right lower limb (2) Morbid obesity with BMI of 50.0-59.9, adult SNOMED Code(s): 238691444 Code(s): E66.01 - MORBID (SEVERE) OBESITY DUE TO EXCESS CALORIES; Z68.43 - BODY MASS INDEX (BMI) 50-59.9 , ADULT Status: Chronic Priority: Medium Current Visit: Yes (3) Leukocytosis SNOMED Code(s): 636487439 Code(s): D72.829 - ELEVATED WHITE BLOOD CELL COUNT, UNSPECIFIED Status: Acute Priority: Medium Current Visit: Yes Qualifiers: Leukocytosis type: unspecified Qualified Code(s): D72.829 - Elevated white blood cell count, unspecified (4) Hypoalbuminemia SNOMED Code(s): 032803707 Code(s): E88.09 - OTH DISORDERS OF PLASMA-PROTEIN METABOLISM, NEC Status: Acute Priority: Medium Current Visit: Yes (5) History of spinal cord injury SNOMED Code(s): 70201023484810 Code(s): Z87.828 - PERSONAL HISTORY OF OTH (HEALED) PHYSICAL INJURY AND TRAUMA Status: Chronic Priority: Medium Current Visit: Yes (6) Hypokalemia SNOMED Code(s): 49988054 Code(s): E87.6 - HYPOKALEMIA Status: Acute Priority: High Current Visit : Yes - Problem List Review Problem List Initiated/Reviewed/Updated: Yes - Plan Plan:: Assessment/Plan: Acute: SSTI/Cellulitis, improving - Risk Factors: Immobile the most part and Poor Hygiene - He is not diabetic - Weeping, diffusely red and edematous right leg - IV Vancomycin 1 gram BID (trough level goal bet 15-20) - Elevate Leg and supportive care - Wound Cx-pending - Duplex U/S report reads lymph nodes within the right groin and right Marcus believed to be reactive. Subcutaneous edema within the pelvis. No evidence of acute DVT within the right lower extremity or within the left common femoral vein. - DVT PPx: Lovenox SubQ daily - Dr. Pittman consulted for further input Leukocytosis, improving - 2/2 Above infection - WBC 19.86--18.92-->13.02; CRP 38.9--> 36.3-->28.6 Hypoalbuminemia - Albumin 2.1 - Dietary consult Morbid Obesity - BMI 56.2--> 53.2 - Thyroid panel - TSH 1.753, T4 1.56; A1C - 6.1 - Dietary for weight management Spinal Injury with Chronic Back Spasm - On Baclofen pump Hypokalemia -Potassium 2.8--> 3.0 -Supplement and monitor Plan: He is clinically stable and improving Routine AM Labs Blood Cx negative PT for wound care Fall Risk GI PPx: H2B SW/CM for d/c planning Additional orders as above Code status: 1; PCP: Dr. Alicia Patient is improving rapidly. CRNAs attempted PICC line x2 with no success. At this time his IV is maintaining and PICC line may not be necessary.
[2017-07-29] MEDS ORDERED: Enoxaparin 40 MG/0.4 ML Syringe SUBCUT SCH (21:00)
[2017-07-30] MEDS: Vancomycin 1 GM, Vancomycin 500 MG in Sodium Chloride 0.9% 500 ML IV SCH ×2 (02:45→09:29)
[2017-07-30] MEDS ORDERED: Bupivacaine 0.5% 30 ML SDV INJECT ONE (04:55)
[2017-07-30] MEDS ORDERED: Lidocaine 1% 20 ML MDV INJECT ONE (04:58)
[2017-07-30] MEDS: Potassium Chloride 20 MEQ Tab.ER PO SCH ×2 (08:05→22:06)
[2017-07-30] MEDS: Enoxaparin 60 MG/0.6 ML Syringe SUBCUT SCH (08:05)
[2017-07-30] MEDS ORDERED: Bupivacaine 0.5% 10 ML SDV INJECT ONE (09:30)
[2017-07-30] MEDS ORDERED: Lidocaine 1% 10 ML MDV INJECT ONE (09:30)
--- NOTE | 2017-07-30 10:23 | PCM.CONSN ---
- General Info Date of Service: 07/30/17 Admission Dx/Problem (Free Text): SSTI/Cellulitis Subjective Update: In to see Nuno. He is sitting in his motorized chair. He is reporting very mild pain in his right leg. He is reclined in his chair and legs are elevated. Leg has a chucks pad around it and there has been some drainage. He reports improved appetite. Dr. Sargent was in to look at his feet today and was going to remove a toe nail but he was missing some equipment. Plan is to remove this tomorrow AM. He has no complaints or concerns. Nursing notes no concerns. Functional Status: Reports: Pain Controlled - Review of Systems General: Reports: No Symptoms HEENT: Reports: No Symptoms Pulmonary: Reports: No Symptoms Cardiovascular: Reports: No Symptoms Gastrointestinal: Reports: No Symptoms Genitourinary: Reports: No Symptoms Musculoskeletal: Reports: No Symptoms Skin: Reports: No Symptoms Neurological: Reports: No Symptoms Psychiatric: Reports: No Symptoms - Patient Data Vitals - Most Recent: Last Vital Signs Temp 37.2 C 07/30/17 08:04 Pulse 78 07/30/17 08:04 Resp 18 07/30/17 08:04 BP 155/84 H 07/30/17 08:04 Pulse Ox 95 07/30/17 08:04 Weight - Most Recent: 197.676 kg I&O - Last 24 Hours: Intake & Output 07/29/17 07/30/17 07/30/17 22:59 06:59 14:59 Intake Total 2320 2185 Output Total 2250 1000 Balance 70 1185 Lab Results Last 24 Hours: Laboratory Results - last 24 hr 07/30/17 07/30/17 Range/Units 08:25 08:25 WBC 12.41 H (4.23-9.07) K/mm3 RBC 4.36 L (4.63-6.08) M/mm3 Hgb 11.6 L (13.7-17.5) gm/L Hct 36.2 L (40.1-51.0) % MCV 83.0 (79.0-92.2) fl MCH 26.6 (25.7-32.2) pg MCHC 32.0 L (32.2-35.5) g/dl RDW Std Deviation 47.9 H (35.1-43.9) fL Plt Count 409 H (163-337) K/mm3 MPV 10.8 (9.4-12.3) fl Neut % (Auto) 68.8 H (34.0-67.9) % Lymph % (Auto) 16.4 L (21.8-53.1) % [place] % (Auto) 8.9 (5.3-12.2) % Eos % (Auto) 2.7 (0.8-7.0) Baso % (Auto) 0.7 (0.1-1.2) % Neut # (Auto) 8.52 H (1.78-5.38) K/mm3 Lymph # (Auto) 2.04 (1.32-3.57) K/mm3 [place] # (Auto) 1.11 H (0.30-0.82) K/mm3 Eos # (Auto) 0.34 (0.04-0.54) K/mm3 Baso # (Auto) 0.09 H (0.01-0.08) K/mm3 Manual Slide Review Abnormal smear Sodium 142 (136-145) mEq/L Potassium 3.6 (3.5-5.1) mEq/L Chloride 107 (98-107) mEq/L Carbon Dioxide 27 (21-32) mEq/L Anion Gap 11.6 (5-15) BUN 11 (7-18) mg/dL Creatinine 0.9 (0.7-1.3) mg/dL Est Cr Clr Drug Dosing 126.49 mL/min Estimated GFR (MDRD) > 60 (>60) mL/min BUN/Creatinine Ratio 12.2 L (14-18) Glucose 105 (74-106) mg/dL Calcium 8.6 (8.5-10.1) mg/dL Magnesium 1.8 (1.8-2.4) mg/dl C-Reactive Protein 18.0 H* (<1.0) mg/dL Samir Results Last 24 Hours: Microbiology 07/27/17 21:10 Aerobic Blood Culture - Preliminary Blood - Venous - Lab Draw NO GROWTH AFTER 2 DAYS Anaerobic Blood Culture - Preliminary NO GROWTH AFTER 2 DAYS 07/27/17 21:20 Wound Culture - Preliminary Leg, Right Med Orders - Current: Current Medications Acetaminophen (Tylenol) 650 mg PO Q4H PRN PRN Reason: Pain (Mild 1-3)/fever Hydrocodone Bitart/Acetaminophen ([place] 325-5 Mg) 1 tab PO Q4H PRN PRN Reason: Pain (moderate 4-6) Albuterol/Ipratropium (Duoneb 3.0-0.5 Mg/3 Ml) 3 ml NEB Q4H PRN PRN Reason: Shortness Of Breath/wheezing Baclofen (Lioresal) 0 mg PO ASDIRECTED PRN PRN Reason: PUMP IN PLACE Bisacodyl (Dulcolax) 5 mg PO DAILY PRN PRN Reason: Constipation Docusate Sodium (Colace) 100 mg PO BID PRN PRN Reason: Constipation Enoxaparin Sodium (Lovenox) 50 mg SUBCUT DAILY [facility] Last Admin: 07/30/17 08:05 Dose: 50 mg Hydralazine HCl (Apresoline) 20 mg IVPUSH Q4H PRN PRN Reason: Hypertension Hydromorphone HCl (Dilaudid) 1 mg IVPUSH Q4H PRN PRN Reason: Pain (severe 7-10) Promethazine HCl 12.5 mg/ (Sodium Chloride) 50.5 mls @ 100 mls/hr IV Q6H PRN PRN Reason: Nausea/Vomiting Vancomycin HCl 1 gm/Vancomycin HCl 500 mg/ Sodium Chloride 500 mls @ 250 mls/ hr IV Q8H [facility] Last Admin: 07/30/17 09:29 Dose: 250 mls/hr Lorazepam (Ativan) 2 mg IVPUSH Q4H PRN PRN Reason: Seizures Lorazepam (Ativan) 1 mg IV Q6H PRN PRN Reason: Anxiety Metoprolol Tartrate (Lopressor) 5 mg IVPUSH Q4H PRN PRN Reason: Tachycardia Ondansetron HCl (Zofran) 4 mg IV Q6H PRN PRN Reason: Nausea/Vomiting Polyethylene Glycol (Miralax) 17 gm PO DAILY PRN PRN Reason: Constipation Potassium Chloride (Klor-Con M20) 40 meq PO BID [facility] Stop: 07/31/17 09:01 Last Admin: 07/30/17 08:05 Dose: 40 meq Senna/Docusate Sodium (Senna Plus) 1 tab PO BID PRN PRN Reason: Constipation Sodium Chloride (Saline Flush) 10 ml FLUSH ASDIRECTED PRN PRN Reason: Keep Vein Open Last Admin: 07/27/17 20:25 Dose: 10 ml Temazepam (Restoril) 15 mg PO BEDTIME PRN PRN Reason: Sleep Vancomycin HCl (Pharmacy To Dose - Vancomycin) 0 dose .XX ASDIRECTED PRN PRN Reason: RX TO DOSE VANCOMYCIN Discontinued Medications Acetaminophen (Tylenol) 975 mg PO NOW ONE Stop: 07/27/17 19:05 Last Admin: 07/27/17 20:24 Dose: 975 mg Bumetanide (Bumex) 0.5 mg IVPUSH ONETIME ONE Stop: 07/28/17 07:01 Last Admin: 07/28/17 08:25 Dose: 0.5 mg Bumetanide (Bumex) 1 mg IVPUSH ONETIME ONE Stop: 07/27/17 21:38 Last Admin: 07/27/17 22:25 Dose: 1 mg Bumetanide (Bumex) 1 mg IVPUSH ONETIME ONE Stop: 07/28/17 23:31 Last Admin: 07/28/17 23:47 Dose: 1 mg Bupivacaine HCl (Marcaine 0.5%) 30 ml INJECT ONETIME ONE Stop: 07/30/17 04:56 Enoxaparin Sodium (Lovenox) 40 mg SUBCUT DAILY [facility] Enoxaparin Sodium (Lovenox) 40 mg SUBCUT DAILY [facility] Last Admin: 07/28/17 08:27 Dose: 40 mg Enoxaparin Sodium (Lovenox) 40 mg SUBCUT ONETIME ONE Stop: 07/27/17 21:21 Last Admin: 07/27/17 22:23 Dose: 40 mg Sodium Chloride (Normal Saline) 1,000 mls @ 125 mls/hr IV ASDIRECTED [facility] Last Admin: 07/29/17 16:26 Dose: 125 mls/hr Vancomycin HCl 2 gm/ Sodium (Chloride) 250 mls @ 250 mls/hr IV ONETIME ONE Stop: 07/27/17 20:14 Last Admin: 07/27/17 20:44 Dose: Not Given Vancomycin HCl 2 gm/ Sodium (Chloride) 500 mls @ 250 mls/hr IV ONETIME ONE Stop: 07/27/17 22:44 Last Admin: 07/27/17 20:35 Dose: 250 mls/hr Sodium Chloride (Normal Saline) Confirm Administered Dose 500 mls @ as directed .ROUTE .STK-MED ONE Stop: 07/27/17 20:36 Last Admin: 07/28/17 10:56 Dose: Not Given Vancomycin HCl 2 gm/ Sodium (Chloride) 500 mls @ 250 mls/hr IV Q12H [facility] Last Admin: 07/28/17 08:16 Dose: 250 mls/hr Vancomycin HCl 2 gm/ Sodium (Chloride) 500 mls @ 250 mls/hr IV Q8H [facility] Last Admin: 07/29/17 15:12 Dose: Not Given Potassium Chloride 10 meq/ (Premix) 100 mls @ 100 mls/hr IV Q1H [facility] Stop: 07/28/17 21:59 Potassium Chloride 10 meq/ (Premix) 100 mls @ 100 mls/hr IV Q1H [facility] Stop: 07/28/17 23:59 Last Admin: 07/28/17 23:46 Dose: 100 mls/hr Vancomycin HCl 1 gm/Vancomycin HCl 500 mg/ Sodium Chloride 500 mls @ 250 mls/ hr IV Q8H [facility] Last Admin: 07/29/17 15:12 Dose: Not Given Lidocaine HCl (Xylocaine 1%) 20 ml INJECT ONETIME ONE Stop: 07/30/17 04:59 Magnesium Sulfate (Pharmacy To Dose - Magnesium Replacement) 0 dose .XX ASDIRECTED PRN PRN Reason: RX TO WATCH MAG LEVELS Potassium Chloride (Pharmacy To Dose - Potassium Replacement) 0 dose .XX ASDIRECTED PRN PRN Reason: RX TO WATCH K LEVELS Potassium Chloride (Klor-Con M20) 40 meq PO Q4H [facility] Stop: 07/29/17 13:46 Last Admin: 07/29/17 13:27 Dose: 40 meq Vancomycin HCl (Vancomycin) 3,061.755 mg 15 mg/kg (3061.755 mg) IV Q12H [facility] - Exam Peripheral Pulses: 0: Posterior Tibial (L), 1+: Dorsalis Pedis (L) Skin: Other (localized paronychia, LEFT great toe @ tibial ungual labial border ; incurvated/ingrown toenail ) Consult PN Assessment/Plan Procedures: Procedures CULTURE AEROBIC IDENTIFY (02/13/14) CULTURE OTHR SPECIMN AEROBIC (02/13/14) MICROBE SUSCEPTIBLE SAMIR (02/13/14) Problem List Initiated/Reviewed/Updated: Yes My Orders Last 24 Hours: 1.) Obtained written/signed consent for Partial Ingrown toenail Avulsion, LEFT great toenail @ Tibial border under local anesthetic blockade. 2.) Performed LEFT hallux, tibial border partial avulsion under 10ccs 1:1 mixture of 2% Lidocaine pl. + 0.5% Marcaine pl. at base of LEFT hallux. Anesthesia was tested & found to be adequate, after which a partial avulsion of the LEFT hallux, distal tibial toenail border was completed & the wound site was dressed with Silvadine 1% cream, 4x4 guaze, and 1" coban. 3.) He will begin bedside Epsom salt soaks after 24 hours, followed by antibiotic dressing/bandaide for 7 consequetive days. 4.) He may F/U in office upon D/C if needed.
--- NOTE | 2017-07-30 14:28 | PCM.PN ---
- General Info Date of Service: 07/30/17 Admission Dx/Problem (Free Text): SSTI/Cellulitis Subjective Update: In to see Nuno. He is sitting in his motorized chair. He is reporting 3/10 pain in his right leg at its worse. He is reclined in his chair and legs are elevated. Leg is bandaged and there is some active drainage. Dr. Sargent was in and removed part of his left great toenail today. Pain is controlled. He has no complaints or concerns. Nursing notes no concerns. PT/OT is recommending SNF placement. Likely discharge on Wednesday as SW has been finding placement. Functional Status: Reports: Pain Controlled, Tolerating Diet, Urinating. Denies : New Symptoms - Review of Systems General: Reports: Weakness, Fatigue. Denies: Fever, Chills HEENT: Reports: No Symptoms Pulmonary: Reports: No Symptoms. Denies: Shortness of Breath, Cough, Sputum, Wheezing Cardiovascular: Reports: Edema. Denies: Chest Pain, Palpitations, Dyspnea on Exertion, Lightheadedness Gastrointestinal: Reports: No Symptoms. Denies: Abdominal Pain, Constipation, Diarrhea, Nausea, Vomiting Genitourinary: Reports: No Symptoms. Denies: Dysuria, Frequency, Burning, Pain Musculoskeletal: Reports: No Symptoms Skin: Reports: No Symptoms Neurological: Reports: Pre-Existing Deficit, Difficulty Walking, Weakness, Gait Disturbance. Denies: Confusion Psychiatric: Reports: No Symptoms - Patient Data Vitals - Most Recent: Last Vital Signs Temp 99.0 F 07/30/17 08:04 Pulse 78 07/30/17 08:04 Resp 18 07/30/17 08:04 BP 155/84 H 07/30/17 08:04 Pulse Ox 95 07/30/17 08:04 Weight - Most Recent: 435 lb 12.8 oz I&O - Last 24 Hours: Intake & Output 07/29/17 07/30/17 07/30/17 22:59 06:59 14:59 Intake Total 2320 2185 Output Total 2250 1000 Balance 70 1185 Lab Results Last 24 Hours: Laboratory Results - last 24 hr 07/30/17 07/30/17 Range/Units 08:25 08:25 WBC 12.41 H (4.23-9.07) K/mm3 RBC 4.36 L (4.63-6.08) M/mm3 Hgb 11.6 L (13.7-17.5) gm/L Hct 36.2 L (40.1-51.0) % MCV 83.0 (79.0-92.2) fl MCH 26.6 (25.7-32.2) pg MCHC 32.0 L (32.2-35.5) g/dl RDW Std Deviation 47.9 H (35.1-43.9) fL Plt Count 409 H (163-337) K/mm3 MPV 10.8 (9.4-12.3) fl Neut % (Auto) 68.8 H (34.0-67.9) % Lymph % (Auto) 16.4 L (21.8-53.1) % [place] % (Auto) 8.9 (5.3-12.2) % Eos % (Auto) 2.7 (0.8-7.0) Baso % (Auto) 0.7 (0.1-1.2) % Neut # (Auto) 8.52 H (1.78-5.38) K/mm3 Lymph # (Auto) 2.04 (1.32-3.57) K/mm3 [place] # (Auto) 1.11 H (0.30-0.82) K/mm3 Eos # (Auto) 0.34 (0.04-0.54) K/mm3 Baso # (Auto) 0.09 H (0.01-0.08) K/mm3 Manual Slide Review Abnormal smear Sodium 142 (136-145) mEq/L Potassium 3.6 (3.5-5.1) mEq/L Chloride 107 (98-107) mEq/L Carbon Dioxide 27 (21-32) mEq/L Anion Gap 11.6 (5-15) BUN 11 (7-18) mg/dL Creatinine 0.9 (0.7-1.3) mg/dL Est Cr Clr Drug Dosing 126.49 mL/min Estimated GFR (MDRD) > 60 (>60) mL/min BUN/Creatinine Ratio 12.2 L (14-18) Glucose 105 (74-106) mg/dL Calcium 8.6 (8.5-10.1) mg/dL Magnesium 1.8 (1.8-2.4) mg/dl C-Reactive Protein 18.0 H* (<1.0) mg/dL Samir Results Last 24 Hours: Microbiology 07/27/17 21:20 Wound Culture - Final Leg, Right 07/27/17 21:10 Aerobic Blood Culture - Preliminary Blood - Venous - Lab Draw NO GROWTH AFTER 2 DAYS Anaerobic Blood Culture - Preliminary NO GROWTH AFTER 2 DAYS Med Orders - Current: Current Medications Acetaminophen (Tylenol) 650 mg PO Q4H PRN PRN Reason: Pain (Mild 1-3)/fever Hydrocodone Bitart/Acetaminophen ([place] 325-5 Mg) 1 tab PO Q4H PRN PRN Reason: Pain (moderate 4-6) Albuterol/Ipratropium (Duoneb 3.0-0.5 Mg/3 Ml) 3 ml NEB Q4H PRN PRN Reason: Shortness Of Breath/wheezing Baclofen (Lioresal) 0 mg PO ASDIRECTED PRN PRN Reason: PUMP IN PLACE Bisacodyl (Dulcolax) 5 mg PO DAILY PRN PRN Reason: Constipation Docusate Sodium (Colace) 100 mg PO BID PRN PRN Reason: Constipation Enoxaparin Sodium (Lovenox) 50 mg SUBCUT DAILY [facility] Last Admin: 07/30/17 08:05 Dose: 50 mg Hydralazine HCl (Apresoline) 20 mg IVPUSH Q4H PRN PRN Reason: Hypertension Hydromorphone HCl (Dilaudid) 1 mg IVPUSH Q4H PRN PRN Reason: Pain (severe 7-10) Promethazine HCl 12.5 mg/ (Sodium Chloride) 50.5 mls @ 100 mls/hr IV Q6H PRN PRN Reason: Nausea/Vomiting Lorazepam (Ativan) 2 mg IVPUSH Q4H PRN PRN Reason: Seizures Lorazepam (Ativan) 1 mg IV Q6H PRN PRN Reason: Anxiety Metoprolol Tartrate (Lopressor) 5 mg IVPUSH Q4H PRN PRN Reason: Tachycardia Ondansetron HCl (Zofran) 4 mg IV Q6H PRN PRN Reason: Nausea/Vomiting Polyethylene Glycol (Miralax) 17 gm PO DAILY PRN PRN Reason: Constipation Potassium Chloride (Klor-Con M20) 40 meq PO BID [facility] Stop: 07/31/17 09:01 Last Admin: 07/30/17 08:05 Dose: 40 meq Senna/Docusate Sodium (Senna Plus) 1 tab PO BID PRN PRN Reason: Constipation Sodium Chloride (Saline Flush) 10 ml FLUSH ASDIRECTED PRN PRN Reason: Keep Vein Open Last Admin: 07/27/17 20:25 Dose: 10 ml Temazepam (Restoril) 15 mg PO BEDTIME PRN PRN Reason: Sleep Trimethoprim/Sulfamethoxazole (Septra Ds) 1 tab PO BID [facility] Discontinued Medications Acetaminophen (Tylenol) 975 mg PO NOW ONE Stop: 07/27/17 19:05 Last Admin: 07/27/17 20:24 Dose: 975 mg Bumetanide (Bumex) 0.5 mg IVPUSH ONETIME ONE Stop: 07/28/17 07:01 Last Admin: 07/28/17 08:25 Dose: 0.5 mg Bumetanide (Bumex) 1 mg IVPUSH ONETIME ONE Stop: 07/27/17 21:38 Last Admin: 07/27/17 22:25 Dose: 1 mg Bumetanide (Bumex) 1 mg IVPUSH ONETIME ONE Stop: 07/28/17 23:31 Last Admin: 07/28/17 23:47 Dose: 1 mg Bupivacaine HCl (Marcaine 0.5%) 30 ml INJECT ONETIME ONE Stop: 07/30/17 04:56 Last Admin: 07/30/17 11:22 Dose: 5 ml Bupivacaine HCl (Sensorcaine-Mpf 0.5%) 5 ml INJECT ONETIME ONE Stop: 07/30/17 09:31 Last Admin: 07/30/17 10:00 Dose: 5 ml Enoxaparin Sodium (Lovenox) 40 mg SUBCUT DAILY [facility] Enoxaparin Sodium (Lovenox) 40 mg SUBCUT DAILY [facility] Last Admin: 07/28/17 08:27 Dose: 40 mg Enoxaparin Sodium (Lovenox) 40 mg SUBCUT ONETIME ONE Stop: 07/27/17 21:21 Last Admin: 07/27/17 22:23 Dose: 40 mg Sodium Chloride (Normal Saline) 1,000 mls @ 125 mls/hr IV ASDIRECTED [facility] Last Admin: 07/29/17 16:26 Dose: 125 mls/hr Vancomycin HCl 2 gm/ Sodium (Chloride) 250 mls @ 250 mls/hr IV ONETIME ONE Stop: 07/27/17 20:14 Last Admin: 07/27/17 20:44 Dose: Not Given Vancomycin HCl 2 gm/ Sodium (Chloride) 500 mls @ 250 mls/hr IV ONETIME ONE Stop: 07/27/17 22:44 Last Admin: 07/27/17 20:35 Dose: 250 mls/hr Sodium Chloride (Normal Saline) Confirm Administered Dose 500 mls @ as directed .ROUTE .STK-MED ONE Stop: 07/27/17 20:36 Last Admin: 07/28/17 10:56 Dose: Not Given Vancomycin HCl 2 gm/ Sodium (Chloride) 500 mls @ 250 mls/hr IV Q12H [facility] Last Admin: 07/28/17 08:16 Dose: 250 mls/hr Vancomycin HCl 2 gm/ Sodium (Chloride) 500 mls @ 250 mls/hr IV Q8H [facility] Last Admin: 07/29/17 15:12 Dose: Not Given Potassium Chloride 10 meq/ (Premix) 100 mls @ 100 mls/hr IV Q1H [facility] Stop: 07/28/17 21:59 Potassium Chloride 10 meq/ (Premix) 100 mls @ 100 mls/hr IV Q1H [facility] Stop: 07/28/17 23:59 Last Admin: 07/28/17 23:46 Dose: 100 mls/hr Vancomycin HCl 1 gm/Vancomycin HCl 500 mg/ Sodium Chloride 500 mls @ 250 mls/ hr IV Q8H [facility] Last Admin: 07/29/17 15:12 Dose: Not Given Vancomycin HCl 1 gm/Vancomycin HCl 500 mg/ Sodium Chloride 500 mls @ 250 mls/ hr IV Q8H [facility] Last Admin: 07/30/17 09:29 Dose: 250 mls/hr Lidocaine HCl (Xylocaine 1%) 20 ml INJECT ONETIME ONE Stop: 07/30/17 04:59 Last Admin: 07/30/17 11:22 Dose: 5 ml Lidocaine HCl (Xylocaine 1%) 5 ml INJECT ONETIME ONE Stop: 07/30/17 09:31 Last Admin: 07/30/17 10:00 Dose: 5 ml Magnesium Sulfate (Pharmacy To Dose - Magnesium Replacement) 0 dose .XX ASDIRECTED PRN PRN Reason: RX TO WATCH MAG LEVELS Potassium Chloride (Pharmacy To Dose - Potassium Replacement) 0 dose .XX ASDIRECTED PRN PRN Reason: RX TO WATCH K LEVELS Potassium Chloride (Klor-Con M20) 40 meq PO Q4H [facility] Stop: 07/29/17 13:46 Last Admin: 07/29/17 13:27 Dose: 40 meq Vancomycin HCl (Vancomycin) 3,061.755 mg 15 mg/kg (3061.755 mg) IV Q12H [facility] Vancomycin HCl (Pharmacy To Dose - Vancomycin) 0 dose .XX ASDIRECTED PRN PRN Reason: RX TO DOSE VANCOMYCIN - Exam Quality Assessment: DVT Prophylaxis General: Alert, Oriented, Cooperative, No Acute Distress HEENT: Pupils Equal, Pupils Reactive, EOMI, Mucous Membr. Moist/[place] Neck: Supple, Trachea Midline, No JVD Lungs: Clear to Auscultation, Normal Respiratory Effort, Decreased Breath Sounds Cardiovascular: Regular Rate, Regular Rhythm GI/Abdominal Exam: Normal Bowel Sounds, Soft, Non-Tender, No Organomegaly, No Distention, No Abnormal Bruit, No Mass, Pelvis Stable (Male) Exam: Deferred Back Exam: Normal Inspection, Full Range of Motion Extremities: Pedal Edema, Limited Range of Motion (right leg), Redness ( improving ), Other (bandage on right leg from knee down ). No: Increased Warmth Peripheral Pulses: 2+: Radial (L), Radial (R) Skin: Warm, Dry, Intact Wound/Incisions: Drainage, Erythema Improving Neurological: No New Focal Deficit Psy/Mental Status: Alert, Normal Affect, Normal Mood - Problem List & Annotations (1) Cellulitis SNOMED Code(s): 229606656 Code(s): L03.90 - CELLULITIS, UNSPECIFIED Status: Acute Priority: High Current Visit: Yes Qualifiers: Site of cellulitis: extremity Site of cellulitis of extremity: lower extremity Laterality: right Qualified Code(s): L03.115 - Cellulitis of right lower limb (2) Morbid obesity with BMI of 50.0-59.9, adult SNOMED Code(s): 046035758 Code(s): E66.01 - MORBID (SEVERE) OBESITY DUE TO EXCESS CALORIES; Z68.43 - BODY MASS INDEX (BMI) 50-59.9 , ADULT Status: Chronic Priority: Medium Current Visit: Yes (3) Leukocytosis SNOMED Code(s): 616797637 Code(s): D72.829 - ELEVATED WHITE BLOOD CELL COUNT, UNSPECIFIED Status: Acute Priority: Medium Current Visit: Yes Qualifiers: Leukocytosis type: unspecified Qualified Code(s): D72.829 - Elevated white blood cell count, unspecified (4) Hypoalbuminemia SNOMED Code(s): 576452414 Code(s): E88.09 - OTH DISORDERS OF PLASMA-PROTEIN METABOLISM, NEC Status: Acute Priority: Medium Current Visit: Yes (5) History of spinal cord injury SNOMED Code(s): 59743794306633 Code(s): Z87.828 - PERSONAL HISTORY OF OTH (HEALED) PHYSICAL INJURY AND TRAUMA Status: Chronic Priority: Medium Current Visit: Yes (6) Hypokalemia SNOMED Code(s): 44158333 Code(s): E87.6 - HYPOKALEMIA Status: Acute Priority: High Current Visit : Yes (7) Ingrown left big toenail SNOMED Code(s): 593182657 Code(s): L60.0 - INGROWING NAIL Status: Acute Priority: Medium Current Visit: Yes - Problem List Review Problem List Initiated/Reviewed/Updated: Yes - Plan Plan:: Assessment/Plan: Acute: SSTI/Cellulitis, improving - Risk Factors: Immobile for the most part and Poor Hygiene - He is not diabetic - Weeping, diffusely red and edematous right leg - IV Vancomycin 1 gram BID (trough level goal bet 15-20)--> switch to PO Septra BID - Elevate Leg and supportive care - Wound Cx- no growth - Duplex U/S report reads lymph nodes within the right groin and right Marcus believed to be reactive. Subcutaneous edema within the pelvis. No evidence of acute DVT within the right lower extremity or within the left common femoral vein. - DVT PPx: Lovenox SubQ daily - Dr. Pittman consulted and recommending antibiotics, elevation, and increased activity as tolerated Leukocytosis, improving - 2/2 Above infection - WBC 19.86--18.92-->13.02-->12.41; CRP 38.9--> 36.3-->28.6-->18.0 Hypoalbuminemia - Albumin 2.1 - Dietary consult Morbid Obesity - BMI 56.2--> 53.2 - Thyroid panel - TSH 1.753, T4 1.56; A1C - 6.1 - Dietary for weight management Spinal Injury with Chronic Back Spasm - On Baclofen pump Hypokalemia -Potassium 2.8--> 3.0-->3.6 -Supplement and monitor Ingrown Toenail -Dr. Sargent consulted -Removal of portion of left great toenail at tibial border preformed today -F/U with Dr. Sargent outpatient as needed Plan: He is clinically stable Routine AM Labs Blood Cx negative PT/OT - recommending SNF PT for wound care Fall Risk GI PPx: H2B SW/CM for d/c planning Additional orders as above Code status: 1; PCP: Dr. Alicia LOS >96 hrs pending SNF placement
[2017-07-30] MEDS: Sulfamethoxazole/Trimethoprim 800-160 MG Tab PO SCH (22:07)
[2017-07-31] MEDS: Sulfamethoxazole/Trimethoprim 800-160 MG Tab PO SCH ×2 (09:10→20:58)
[2017-07-31] MEDS: Enoxaparin 60 MG/0.6 ML Syringe SUBCUT SCH (09:10)
[2017-07-31] MEDS: Potassium Chloride 20 MEQ Tab.ER PO SCH (09:10)
[2017-07-31] MEDS ORDERED: Aluminum Sulfate/Calcium Acetate Powder 1 Packet TOP SCH ×2 (10:00→10:15)
[2017-07-31] MEDS ORDERED: HYDROmorphone 0.5 MG/0.5 ML SYRINGE IVPUSH PRN (10:13)
[2017-07-31] MEDS: Bacitracin/Neomycin/Polymyxin B Oint 15 GM Tube TOP SCH (10:23)
--- NOTE | 2017-07-31 13:31 | PCM.PN ---
- General Info Date of Service: 07/31/17 Functional Status: Reports: Pain Controlled, Urinating - Review of Systems General: Reports: No Symptoms HEENT: Reports: No Symptoms Pulmonary: Reports: No Symptoms Cardiovascular: Reports: No Symptoms Gastrointestinal: Reports: No Symptoms Genitourinary: Reports: No Symptoms Musculoskeletal: Reports: No Symptoms Skin: Reports: No Symptoms Neurological: Reports: No Symptoms Psychiatric: Reports: No Symptoms - Patient Data Vitals - Most Recent: Last Vital Signs Temp 36.7 C 07/31/17 07:19 Pulse 82 07/31/17 07:19 Resp 16 07/31/17 07:19 BP 146/73 H 07/31/17 07:19 Pulse Ox 94 L 07/31/17 07:19 Weight - Most Recent: 197.358 kg I&O - Last 24 Hours: Intake & Output 07/30/17 07/31/17 07/31/17 22:59 06:59 14:59 Intake Total 1780 600 240 Output Total 1800 1665 Balance -20 -1065 240 Lab Results Last 24 Hours: Laboratory Results - last 24 hr 07/31/17 07/31/17 Range/Units 05:14 05:14 WBC 13.58 H (4.23-9.07) K/mm3 RBC 4.27 L (4.63-6.08) M/mm3 Hgb 11.3 L (13.7-17.5) gm/L Hct 35.5 L (40.1-51.0) % MCV 83.1 (79.0-92.2) fl MCH 26.5 (25.7-32.2) pg MCHC 31.8 L (32.2-35.5) g/dl RDW Std Deviation 47.6 H (35.1-43.9) fL Plt Count 400 H (163-337) K/mm3 MPV 10.7 (9.4-12.3) fl Neut % (Auto) 71.2 H (34.0-67.9) % Lymph % (Auto) 14.4 L (21.8-53.1) % [place] % (Auto) 9.1 (5.3-12.2) % Eos % (Auto) 2.7 (0.8-7.0) Baso % (Auto) 0.4 (0.1-1.2) % Neut # (Auto) 9.68 H (1.78-5.38) K/mm3 Lymph # (Auto) 1.96 (1.32-3.57) K/mm3 [place] # (Auto) 1.23 H (0.30-0.82) K/mm3 Eos # (Auto) 0.36 (0.04-0.54) K/mm3 Baso # (Auto) 0.05 (0.01-0.08) K/mm3 Manual Slide Review Abnormal smear Sodium 137 (136-145) mEq/L Potassium 4.0 (3.5-5.1) mEq/L Chloride 103 (98-107) mEq/L Carbon Dioxide 28 (21-32) mEq/L Anion Gap 10.0 (5-15) BUN 11 (7-18) mg/dL Creatinine 0.9 (0.7-1.3) mg/dL Est Cr Clr Drug Dosing 126.49 mL/min Estimated GFR (MDRD) > 60 (>60) mL/min BUN/Creatinine Ratio 12.2 L (14-18) Glucose 110 H (74-106) mg/dL Calcium 8.6 (8.5-10.1) mg/dL Magnesium 1.7 L (1.8-2.4) mg/dl C-Reactive Protein 14.1 H* (<1.0) mg/dL Samir Results Last 24 Hours: Microbiology 07/27/17 21:10 Aerobic Blood Culture - Preliminary Blood - Venous - Lab Draw NO GROWTH AFTER 3 DAYS Anaerobic Blood Culture - Preliminary NO GROWTH AFTER 3 DAYS 07/27/17 21:20 Wound Culture - Final Leg, Right Med Orders - Current: Current Medications Acetaminophen (Tylenol) 650 mg PO Q4H PRN PRN Reason: Pain (Mild 1-3)/fever Hydrocodone Bitart/Acetaminophen ([place] 325-5 Mg) 1 tab PO Q4H PRN PRN Reason: Pain (moderate 4-6) Albuterol/Ipratropium (Duoneb 3.0-0.5 Mg/3 Ml) 3 ml NEB Q4H PRN PRN Reason: Shortness Of Breath/wheezing Baclofen (Lioresal) 0 mg PO ASDIRECTED PRN PRN Reason: PUMP IN PLACE Bisacodyl (Dulcolax) 5 mg PO DAILY PRN PRN Reason: Constipation Docusate Sodium (Colace) 100 mg PO BID PRN PRN Reason: Constipation Enoxaparin Sodium (Lovenox) 50 mg SUBCUT DAILY [facility] Last Admin: 07/31/17 09:10 Dose: 50 mg Hydralazine HCl (Apresoline) 20 mg IVPUSH Q4H PRN PRN Reason: Hypertension Hydromorphone HCl (Dilaudid) 1 mg IVPUSH Q4H PRN PRN Reason: Pain (severe 7-10) Promethazine HCl 12.5 mg/ (Sodium Chloride) 50.5 mls @ 100 mls/hr IV Q6H PRN PRN Reason: Nausea/Vomiting Lorazepam (Ativan) 2 mg IVPUSH Q4H PRN PRN Reason: Seizures Lorazepam (Ativan) 1 mg IV Q6H PRN PRN Reason: Anxiety Metoprolol Tartrate (Lopressor) 5 mg IVPUSH Q4H PRN PRN Reason: Tachycardia Neomycin/Polymyxin/Bacitracin (Neosporin Oint) 0 gm TOP DAILY@1030 [facility] Stop: 08/06/17 10:31 Last Admin: 07/31/17 10:23 Dose: 1 applic Ondansetron HCl (Zofran) 4 mg IV Q6H PRN PRN Reason: Nausea/Vomiting Dr. Guerrero's Pure (Epsom Salts) 0 each TOP DAILY@1000 [facility] Stop: 08/06/17 10:01 Polyethylene Glycol (Miralax) 17 gm PO DAILY PRN PRN Reason: Constipation Senna/Docusate Sodium (Senna Plus) 1 tab PO BID PRN PRN Reason: Constipation Sodium Chloride (Saline Flush) 10 ml FLUSH ASDIRECTED PRN PRN Reason: Keep Vein Open Last Admin: 07/27/17 20:25 Dose: 10 ml Temazepam (Restoril) 15 mg PO BEDTIME PRN PRN Reason: Sleep Trimethoprim/Sulfamethoxazole (Septra Ds) 1 tab PO BID [facility] Last Admin: 07/31/17 09:10 Dose: 1 tab Discontinued Medications Acetaminophen (Tylenol) 975 mg PO NOW ONE Stop: 07/27/17 19:05 Last Admin: 07/27/17 20:24 Dose: 975 mg Aluminum Sulfate/Calcium Acetate ([place] Powder) 2 each TOP DAILY@1000 [facility] Stop: 08/06/17 10:01 Last Admin: 07/31/17 10:21 Dose: 2 each Aluminum Sulfate/Calcium Acetate ([place] Powder) 1 each TOP DAILY@1000 [facility] Stop: 08/06/17 10:01 Bumetanide (Bumex) 0.5 mg IVPUSH ONETIME ONE Stop: 07/28/17 07:01 Last Admin: 07/28/17 08:25 Dose: 0.5 mg Bumetanide (Bumex) 1 mg IVPUSH ONETIME ONE Stop: 07/27/17 21:38 Last Admin: 07/27/17 22:25 Dose: 1 mg Bumetanide (Bumex) 1 mg IVPUSH ONETIME ONE Stop: 07/28/17 23:31 Last Admin: 07/28/17 23:47 Dose: 1 mg Bupivacaine HCl (Marcaine 0.5%) 30 ml INJECT ONETIME ONE Stop: 07/30/17 04:56 Last Admin: 07/30/17 11:22 Dose: 5 ml Bupivacaine HCl (Sensorcaine-Mpf 0.5%) 5 ml INJECT ONETIME ONE Stop: 07/30/17 09:31 Last Admin: 07/30/17 10:00 Dose: 5 ml Enoxaparin Sodium (Lovenox) 40 mg SUBCUT DAILY [facility] Enoxaparin Sodium (Lovenox) 40 mg SUBCUT DAILY [facility] Last Admin: 07/28/17 08:27 Dose: 40 mg Enoxaparin Sodium (Lovenox) 40 mg SUBCUT ONETIME ONE Stop: 07/27/17 21:21 Last Admin: 07/27/17 22:23 Dose: 40 mg Hydromorphone HCl (Dilaudid) 1 mg IVPUSH Q4H PRN PRN Reason: Pain (severe 7-10) Sodium Chloride (Normal Saline) 1,000 mls @ 125 mls/hr IV ASDIRECTED [facility] Last Admin: 07/29/17 16:26 Dose: 125 mls/hr Vancomycin HCl 2 gm/ Sodium (Chloride) 250 mls @ 250 mls/hr IV ONETIME ONE Stop: 07/27/17 20:14 Last Admin: 07/27/17 20:44 Dose: Not Given Vancomycin HCl 2 gm/ Sodium (Chloride) 500 mls @ 250 mls/hr IV ONETIME ONE Stop: 07/27/17 22:44 Last Admin: 07/27/17 20:35 Dose: 250 mls/hr Sodium Chloride (Normal Saline) Confirm Administered Dose 500 mls @ as directed .ROUTE .STK-MED ONE Stop: 07/27/17 20:36 Last Admin: 07/28/17 10:56 Dose: Not Given Vancomycin HCl 2 gm/ Sodium (Chloride) 500 mls @ 250 mls/hr IV Q12H [facility] Last Admin: 07/28/17 08:16 Dose: 250 mls/hr Vancomycin HCl 2 gm/ Sodium (Chloride) 500 mls @ 250 mls/hr IV Q8H [facility] Last Admin: 07/29/17 15:12 Dose: Not Given Potassium Chloride 10 meq/ (Premix) 100 mls @ 100 mls/hr IV Q1H [facility] Stop: 07/28/17 21:59 Potassium Chloride 10 meq/ (Premix) 100 mls @ 100 mls/hr IV Q1H [facility] Stop: 07/28/17 23:59 Last Admin: 07/28/17 23:46 Dose: 100 mls/hr Vancomycin HCl 1 gm/Vancomycin HCl 500 mg/ Sodium Chloride 500 mls @ 250 mls/ hr IV Q8H [facility] Last Admin: 07/29/17 15:12 Dose: Not Given Vancomycin HCl 1 gm/Vancomycin HCl 500 mg/ Sodium Chloride 500 mls @ 250 mls/ hr IV Q8H [facility] Last Admin: 07/30/17 09:29 Dose: 250 mls/hr Lidocaine HCl (Xylocaine 1%) 20 ml INJECT ONETIME ONE Stop: 07/30/17 04:59 Last Admin: 07/30/17 11:22 Dose: 5 ml Lidocaine HCl (Xylocaine 1%) 5 ml INJECT ONETIME ONE Stop: 07/30/17 09:31 Last Admin: 07/30/17 10:00 Dose: 5 ml Magnesium Sulfate (Pharmacy To Dose - Magnesium Replacement) 0 dose .XX ASDIRECTED PRN PRN Reason: RX TO WATCH MAG LEVELS Potassium Chloride (Pharmacy To Dose - Potassium Replacement) 0 dose .XX ASDIRECTED PRN PRN Reason: RX TO WATCH K LEVELS Potassium Chloride (Klor-Con M20) 40 meq PO Q4H [facility] Stop: 07/29/17 13:46 Last Admin: 07/29/17 13:27 Dose: 40 meq Potassium Chloride (Klor-Con M20) 40 meq PO BID [facility] Stop: 07/31/17 09:01 Last Admin: 07/31/17 09:10 Dose: 40 meq Vancomycin HCl (Vancomycin) 3,061.755 mg 15 mg/kg (3061.755 mg) IV Q12H [facility] Vancomycin HCl (Pharmacy To Dose - Vancomycin) 0 dose .XX ASDIRECTED PRN PRN Reason: RX TO DOSE VANCOMYCIN - Exam Quality Assessment: Supplemental Oxygen, DVT Prophylaxis General: Alert, Oriented, Cooperative, No Acute Distress HEENT: Pupils Equal, Pupils Reactive, EOMI Neck: Trachea Midline, No JVD Lungs: Normal Respiratory Effort, Decreased Breath Sounds Cardiovascular: Regular Rate, Regular Rhythm GI/Abdominal Exam: Normal Bowel Sounds, Soft, Non-Tender, No Organomegaly, No Distention (Male) Exam: Deferred Back Exam: Normal Inspection Extremities: Normal Inspection, Non-Tender Skin: Warm Wound/Incisions: Dressing Dry and Intact Neurological: No New Focal Deficit, Normal Speech Psy/Mental Status: Alert, Normal Affect, Normal Mood - Problem List Review Problem List Initiated/Reviewed/Updated: Yes - My Orders Last 24 Hours: My Active Orders 07/30/17 21:00 Sulfamethoxazole/Trimethoprim [Septra DS] 1 tab PO BID 07/31/17 10:30 Bacitracin/Neomycin/Polymyxin [Neosporin Oint] 0 gm TOP DAILY@1030 - Assessment Assessment:: POD 1, Dr Sargent note below written 07/30/17. 1.) Obtained written/signed consent for Partial Ingrown toenail Avulsion, LEFT great toenail @ Tibial border under local anesthetic blockade. 2.) Performed LEFT hallux, tibial border partial avulsion under 10ccs 1:1 mixture of 2% Lidocaine pl. + 0.5% Marcaine pl. at base of LEFT hallux. Anesthesia was tested & found to be adequate, after which a partial avulsion of the LEFT hallux, distal tibial toenail border was completed & the wound site was dressed with Silvadine 1% cream, 4x4 guaze, and 1" coban. 3.) He will begin bedside Epsom salt soaks after 24 hours, followed by antibiotic dressing/bandaide for 7 consequetive days. 4.) He may F/U in office upon D/C if needed. - Plan Plan:: Assessment/Plan: Acute: SSTI/Cellulitis, improving - Risk Factors: Immobile for the most part and Poor Hygiene - He is not diabetic - Weeping, diffusely red and edematous right leg - IV Vancomycin 1 gram BID (trough level goal bet 15-20)--> switch to PO Septra BID - Elevate Leg and supportive care - Wound Cx- no growth - Duplex U/S report reads lymph nodes within the right groin and right Marcus believed to be reactive. Subcutaneous edema within the pelvis. No evidence of acute DVT within the right lower extremity or within the left common femoral vein. - DVT PPx: Lovenox SubQ daily - Dr. Pittman consulted and recommending antibiotics, elevation, and increased activity as tolerated Leukocytosis, improving - 2/2 Above infection - WBC 19.86--18.92-->13.02-->12.41; CRP 38.9--> 36.3-->28.6-->18.0 Hypoalbuminemia - Albumin 2.1 - Dietary consult Morbid Obesity - BMI 56.2--> 53.2 - Thyroid panel - TSH 1.753, T4 1.56; A1C - 6.1 - Dietary for weight management Spinal Injury with Chronic Back Spasm - On Baclofen pump Hypokalemia -Potassium 2.8--> 3.0-->3.6 -Supplement and monitor Ingrown Toenail -Dr. Sargent consulted -Removal of portion of left great toenail at tibial border preformed today -F/U with Dr. Sargent outpatient as needed Plan: He is clinically stable Routine AM Labs Blood Cx negative PT/OT - recommending SNF PT for wound care Starting foot soaks as prescribed by [facility] Administrator, Dr Sargent Fall Risk GI PPx: H2B SW/CM for d/c planning Additional orders as above Code status: 1; PCP: Dr. Alicia LOS >96 hrs pending SNF placement
[2017-07-31] MEDS ORDERED: Magnesium Sulfate/Water 2 GM in Premix Bag 1 BAG IV ONE (15:57)
[2017-08-01] MEDS: Enoxaparin 60 MG/0.6 ML Syringe SUBCUT SCH (08:33)
[2017-08-01] MEDS: Sulfamethoxazole/Trimethoprim 800-160 MG Tab PO SCH ×2 (08:34→21:27)
[2017-08-01] MEDS: Bacitracin/Neomycin/Polymyxin B Oint 15 GM Tube TOP SCH (09:45)
[2017-08-01] MEDS: [UNRECOGNIZED DRUG - REMARK] TOP SCH (09:45)
--- NOTE | 2017-08-01 13:27 | PCM.PN ---
- General Info Date of Service: 08/01/17 Functional Status: Reports: Pain Controlled, Tolerating Diet - Review of Systems General: Reports: No Symptoms HEENT: Reports: No Symptoms Pulmonary: Reports: No Symptoms Cardiovascular: Reports: No Symptoms Gastrointestinal: Reports: No Symptoms Genitourinary: Reports: No Symptoms Musculoskeletal: Reports: No Symptoms Skin: Reports: No Symptoms Neurological: Reports: No Symptoms Psychiatric: Reports: No Symptoms - Patient Data Vitals - Most Recent: Last Vital Signs Temp 36.8 C 08/01/17 07:40 Pulse 80 08/01/17 07:40 Resp 16 08/01/17 07:40 BP 131/65 08/01/17 07:40 Pulse Ox 94 L 08/01/17 07:40 Weight - Most Recent: 195.952 kg I&O - Last 24 Hours: Intake & Output 07/31/17 08/01/17 08/01/17 22:59 06:59 14:59 Intake Total 1790 600 360 Output Total 1125 1740 Balance 665 -1140 360 Lab Results Last 24 Hours: Laboratory Results - last 24 hr 08/01/17 08/01/17 08/01/17 Range/Units 07:07 07:07 07:07 WBC 14.09 H (4.23-9.07) K/mm3 RBC 4.23 L (4.63-6.08) M/mm3 Hgb 11.5 L (13.7-17.5) gm/L Hct 35.1 L (40.1-51.0) % MCV 83.0 (79.0-92.2) fl MCH 27.2 (25.7-32.2) pg MCHC 32.8 (32.2-35.5) g/dl RDW Std Deviation 47.7 H (35.1-43.9) fL Plt Count 410 H (163-337) K/mm3 MPV 10.7 (9.4-12.3) fl Neut % (Auto) 73.1 H (34.0-67.9) % Lymph % (Auto) 14.0 L (21.8-53.1) % [place] % (Auto) 8.9 (5.3-12.2) % Eos % (Auto) 1.9 (0.8-7.0) Baso % (Auto) 0.4 (0.1-1.2) % Neut # (Auto) 10.30 H (1.78-5.38) K/mm3 Lymph # (Auto) 1.97 (1.32-3.57) K/mm3 [place] # (Auto) 1.26 H (0.30-0.82) K/mm3 Eos # (Auto) 0.27 (0.04-0.54) K/mm3 Baso # (Auto) 0.05 (0.01-0.08) K/mm3 Manual Slide Review Abnormal smear Sodium 137 (136-145) mEq/L Potassium 4.0 (3.5-5.1) mEq/L Chloride 104 (98-107) mEq/L Carbon Dioxide 25 (21-32) mEq/L Anion Gap 12.0 (5-15) BUN 12 (7-18) mg/dL Creatinine 1.0 (0.7-1.3) mg/dL Est Cr Clr Drug Dosing 113.84 mL/min Estimated GFR (MDRD) > 60 (>60) mL/min BUN/Creatinine Ratio 12.0 L (14-18) Glucose 108 H (74-106) mg/dL Lactic Acid 0.9 (0.4-2.0) mmol/L Calcium 8.7 (8.5-10.1) mg/dL Magnesium 2.1 (1.8-2.4) mg/dl C-Reactive Protein 15.3 H* (<1.0) mg/dL Samir Results Last 24 Hours: Microbiology 07/27/17 21:10 Aerobic Blood Culture - Preliminary Blood - Venous - Lab Draw NO GROWTH AFTER 4 DAYS Anaerobic Blood Culture - Preliminary NO GROWTH AFTER 4 DAYS Med Orders - Current: Current Medications Acetaminophen (Tylenol) 650 mg PO Q4H PRN PRN Reason: Pain (Mild 1-3)/fever Hydrocodone Bitart/Acetaminophen ([place] 325-5 Mg) 1 tab PO Q4H PRN PRN Reason: Pain (moderate 4-6) Albuterol/Ipratropium (Duoneb 3.0-0.5 Mg/3 Ml) 3 ml NEB Q4H PRN PRN Reason: Shortness Of Breath/wheezing Baclofen (Lioresal) 0 mg PO ASDIRECTED PRN PRN Reason: PUMP IN PLACE Bisacodyl (Dulcolax) 5 mg PO DAILY PRN PRN Reason: Constipation Docusate Sodium (Colace) 100 mg PO BID PRN PRN Reason: Constipation Enoxaparin Sodium (Lovenox) 50 mg SUBCUT DAILY [facility] Last Admin: 08/01/17 08:33 Dose: 50 mg Hydralazine HCl (Apresoline) 20 mg IVPUSH Q4H PRN PRN Reason: Hypertension Hydromorphone HCl (Dilaudid) 1 mg IVPUSH Q4H PRN PRN Reason: Pain (severe 7-10) Promethazine HCl 12.5 mg/ (Sodium Chloride) 50.5 mls @ 100 mls/hr IV Q6H PRN PRN Reason: Nausea/Vomiting Lorazepam (Ativan) 2 mg IVPUSH Q4H PRN PRN Reason: Seizures Lorazepam (Ativan) 1 mg IV Q6H PRN PRN Reason: Anxiety Metoprolol Tartrate (Lopressor) 5 mg IVPUSH Q4H PRN PRN Reason: Tachycardia Neomycin/Polymyxin/Bacitracin (Neosporin Oint) 0 gm TOP DAILY@1030 [facility] Stop: 08/06/17 10:31 Last Admin: 08/01/17 09:45 Dose: 1 applic Ondansetron HCl (Zofran) 4 mg IV Q6H PRN PRN Reason: Nausea/Vomiting Dr. Guerrero's Pure (Epsom Salts) 0 each TOP DAILY@1000 [facility] Stop: 08/06/17 10:01 Last Admin: 08/01/17 09:45 Dose: 1 each Polyethylene Glycol (Miralax) 17 gm PO DAILY PRN PRN Reason: Constipation Senna/Docusate Sodium (Senna Plus) 1 tab PO BID PRN PRN Reason: Constipation Sertraline HCl (Zoloft) 25 mg PO BEDTIME [facility] Sodium Chloride (Saline Flush) 10 ml FLUSH ASDIRECTED PRN PRN Reason: Keep Vein Open Last Admin: 07/27/17 20:25 Dose: 10 ml Temazepam (Restoril) 15 mg PO BEDTIME PRN PRN Reason: Sleep Trimethoprim/Sulfamethoxazole (Septra Ds) 1 tab PO BID [facility] Last Admin: 08/01/17 08:34 Dose: 1 tab Discontinued Medications Acetaminophen (Tylenol) 975 mg PO NOW ONE Stop: 07/27/17 19:05 Last Admin: 07/27/17 20:24 Dose: 975 mg Aluminum Sulfate/Calcium Acetate ([place] Powder) 2 each TOP DAILY@1000 [facility] Stop: 08/06/17 10:01 Last Admin: 07/31/17 10:21 Dose: 2 each Aluminum Sulfate/Calcium Acetate ([place] Powder) 1 each TOP DAILY@1000 [facility] Stop: 08/06/17 10:01 Bumetanide (Bumex) 0.5 mg IVPUSH ONETIME ONE Stop: 07/28/17 07:01 Last Admin: 07/28/17 08:25 Dose: 0.5 mg Bumetanide (Bumex) 1 mg IVPUSH ONETIME ONE Stop: 07/27/17 21:38 Last Admin: 07/27/17 22:25 Dose: 1 mg Bumetanide (Bumex) 1 mg IVPUSH ONETIME ONE Stop: 07/28/17 23:31 Last Admin: 07/28/17 23:47 Dose: 1 mg Bupivacaine HCl (Marcaine 0.5%) 30 ml INJECT ONETIME ONE Stop: 07/30/17 04:56 Last Admin: 07/30/17 11:22 Dose: 5 ml Bupivacaine HCl (Sensorcaine-Mpf 0.5%) 5 ml INJECT ONETIME ONE Stop: 07/30/17 09:31 Last Admin: 07/30/17 10:00 Dose: 5 ml Enoxaparin Sodium (Lovenox) 40 mg SUBCUT DAILY [facility] Enoxaparin Sodium (Lovenox) 40 mg SUBCUT DAILY [facility] Last Admin: 07/28/17 08:27 Dose: 40 mg Enoxaparin Sodium (Lovenox) 40 mg SUBCUT ONETIME ONE Stop: 07/27/17 21:21 Last Admin: 07/27/17 22:23 Dose: 40 mg Hydromorphone HCl (Dilaudid) 1 mg IVPUSH Q4H PRN PRN Reason: Pain (severe 7-10) Sodium Chloride (Normal Saline) 1,000 mls @ 125 mls/hr IV ASDIRECTED [facility] Last Admin: 07/29/17 16:26 Dose: 125 mls/hr Vancomycin HCl 2 gm/ Sodium (Chloride) 250 mls @ 250 mls/hr IV ONETIME ONE Stop: 07/27/17 20:14 Last Admin: 07/27/17 20:44 Dose: Not Given Vancomycin HCl 2 gm/ Sodium (Chloride) 500 mls @ 250 mls/hr IV ONETIME ONE Stop: 07/27/17 22:44 Last Admin: 07/27/17 20:35 Dose: 250 mls/hr Sodium Chloride (Normal Saline) Confirm Administered Dose 500 mls @ as directed .ROUTE .STK-MED ONE Stop: 07/27/17 20:36 Last Admin: 07/28/17 10:56 Dose: Not Given Vancomycin HCl 2 gm/ Sodium (Chloride) 500 mls @ 250 mls/hr IV Q12H [facility] Last Admin: 07/28/17 08:16 Dose: 250 mls/hr Vancomycin HCl 2 gm/ Sodium (Chloride) 500 mls @ 250 mls/hr IV Q8H [facility] Last Admin: 07/29/17 15:12 Dose: Not Given Potassium Chloride 10 meq/ (Premix) 100 mls @ 100 mls/hr IV Q1H [facility] Stop: 07/28/17 21:59 Potassium Chloride 10 meq/ (Premix) 100 mls @ 100 mls/hr IV Q1H [facility] Stop: 07/28/17 23:59 Last Admin: 07/28/17 23:46 Dose: 100 mls/hr Vancomycin HCl 1 gm/Vancomycin HCl 500 mg/ Sodium Chloride 500 mls @ 250 mls/ hr IV Q8H [facility] Last Admin: 07/29/17 15:12 Dose: Not Given Vancomycin HCl 1 gm/Vancomycin HCl 500 mg/ Sodium Chloride 500 mls @ 250 mls/ hr IV Q8H [facility] Last Admin: 07/30/17 09:29 Dose: 250 mls/hr Magnesium Sulfate 2 gm/ Premix 50 mls @ 25 mls/hr IV ONETIME ONE Stop: 07/31/17 17:56 Last Admin: 07/31/17 16:32 Dose: 25 mls/hr Lidocaine HCl (Xylocaine 1%) 20 ml INJECT ONETIME ONE Stop: 07/30/17 04:59 Last Admin: 07/30/17 11:22 Dose: 5 ml Lidocaine HCl (Xylocaine 1%) 5 ml INJECT ONETIME ONE Stop: 07/30/17 09:31 Last Admin: 07/30/17 10:00 Dose: 5 ml Magnesium Sulfate (Pharmacy To Dose - Magnesium Replacement) 0 dose .XX ASDIRECTED PRN PRN Reason: RX TO WATCH MAG LEVELS Potassium Chloride (Pharmacy To Dose - Potassium Replacement) 0 dose .XX ASDIRECTED PRN PRN Reason: RX TO WATCH K LEVELS Potassium Chloride (Klor-Con M20) 40 meq PO Q4H [facility] Stop: 07/29/17 13:46 Last Admin: 07/29/17 13:27 Dose: 40 meq Potassium Chloride (Klor-Con M20) 40 meq PO BID [facility] Stop: 07/31/17 09:01 Last Admin: 07/31/17 09:10 Dose: 40 meq Vancomycin HCl (Vancomycin) 3,061.755 mg 15 mg/kg (3061.755 mg) IV Q12H [facility] Vancomycin HCl (Pharmacy To Dose - Vancomycin) 0 dose .XX ASDIRECTED PRN PRN Reason: RX TO DOSE VANCOMYCIN - Exam Quality Assessment: DVT Prophylaxis General: Alert, Oriented, Cooperative, No Acute Distress HEENT: Pupils Equal, Pupils Reactive, EOMI Neck: Supple, Trachea Midline, No JVD Lungs: Normal Respiratory Effort Cardiovascular: Regular Rate, Regular Rhythm GI/Abdominal Exam: Normal Bowel Sounds, Soft, Non-Tender, No Organomegaly, No Distention (Male) Exam: Deferred Back Exam: Normal Inspection Extremities: Pedal Edema Skin: Warm Wound/Incisions: Dressing Dry and Intact Neurological: No New Focal Deficit, Normal Speech Psy/Mental Status: Alert, Normal Affect, Normal Mood - Problem List Review Problem List Initiated/Reviewed/Updated: Yes - My Orders Last 24 Hours: My Active Orders 08/01/17 21:00 Sertraline [Zoloft] 25 mg PO BEDTIME 08/01/17 Lunch Heart Healthy Diet [DIET] 08/02/17 05:00 BASIC METABOLIC PANEL,BMP [CHEM] DAILY CBC WITH AUTO DIFF [HEME] DAILY CRP [C-REACTIVE PROTEIN] [CHEM] DAILY LACTIC ACID [CHEM] DAILY MAGNESIUM [CHEM] DAILY 08/03/17 05:00 BASIC METABOLIC PANEL,BMP [CHEM] DAILY CBC WITH AUTO DIFF [HEME] DAILY CRP [C-REACTIVE PROTEIN] [CHEM] DAILY LACTIC ACID [CHEM] DAILY MAGNESIUM [CHEM] DAILY - Assessment Assessment:: POD 1, Dr Sargent note below written 07/30/17. 1.) Obtained written/signed consent for Partial Ingrown toenail Avulsion, LEFT great toenail @ Tibial border under local anesthetic blockade. 2.) Performed LEFT hallux, tibial border partial avulsion under 10ccs 1:1 mixture of 2% Lidocaine pl. + 0.5% Marcaine pl. at base of LEFT hallux. Anesthesia was tested & found to be adequate, after which a partial avulsion of the LEFT hallux, distal tibial toenail border was completed & the wound site was dressed with Silvadine 1% cream, 4x4 guaze, and 1" coban. 3.) He will begin bedside Epsom salt soaks after 24 hours, followed by antibiotic dressing/bandaide for 7 consequetive days. 4.) He may F/U in office upon D/C if needed. - Plan Plan:: Assessment/Plan: Acute: SSTI/Cellulitis, improving - Risk Factors: Immobile for the most part and Poor Hygiene - He is not diabetic - Weeping, diffusely red and edematous right leg - IV Vancomycin 1 gram BID (trough level goal bet 15-20)--> switch to PO Septra BID - Elevate Leg and supportive care - Wound Cx- no growth - Duplex U/S report reads lymph nodes within the right groin and right Marcus believed to be reactive. Subcutaneous edema within the pelvis. No evidence of acute DVT within the right lower extremity or within the left common femoral vein. - DVT PPx: Lovenox SubQ daily - Dr. Pittman consulted and recommending antibiotics, elevation, and increased activity as tolerated Leukocytosis, improving - 2/2 Above infection Hypoalbuminemia - Albumin 2.1 - Dietary consult Morbid Obesity - BMI 56.2--> 53.2; diet change for 1999 erlinda adjustment for wound care needs - Thyroid panel - TSH 1.753, T4 1.56; A1C - 6.1 - Dietary for weight management--->diet changed to heart healthy 2000 calories, 1 tray, no snacks Spinal Injury with Chronic Back Spasm - On Baclofen pump Hypokalemia -Potassium 2.8--> 3.0-->3.6 -Supplement and monitor Ingrown Toenail -Dr. Sargent consulted -Removal of portion of left great toenail at tibial border preformed today -F/U with Dr. Sargent outpatient as needed Plan: He is clinically stable Routine AM Labs Blood Cx negative PT/OT - recommending SNF PT for wound care Starting foot soaks as prescribed by Reception Clerk, Dr Sargent Fall Risk GI PPx: H2B SW/CM for d/c planning Additional orders as above Code status: 1; PCP: Dr. Alicia LOS >96 hrs pending SNF placement
[2017-08-01] MEDS: Sertraline 25 MG Tab PO SCH (21:28)
[2017-08-02] MEDS: Enoxaparin 60 MG/0.6 ML Syringe SUBCUT SCH (09:54)
[2017-08-02] MEDS: Sulfamethoxazole/Trimethoprim 800-160 MG Tab PO SCH ×2 (09:55→20:28)
[2017-08-02] MEDS: [UNRECOGNIZED DRUG - REMARK] TOP SCH (09:56)
[2017-08-02] MEDS: Bacitracin/Neomycin/Polymyxin B Oint 15 GM Tube TOP SCH (09:56)
--- NOTE | 2017-08-02 12:37 | PCM.PN ---
- General Info Date of Service: 08/02/17 Functional Status: Reports: Tolerating Diet, Urinating - Review of Systems General: Reports: No Symptoms HEENT: Reports: No Symptoms Pulmonary: Reports: No Symptoms Cardiovascular: Reports: No Symptoms Gastrointestinal: Reports: No Symptoms Genitourinary: Reports: No Symptoms Musculoskeletal: Reports: No Symptoms Skin: Reports: No Symptoms Neurological: Reports: No Symptoms Psychiatric: Reports: No Symptoms - Patient Data Vitals - Most Recent: Last Vital Signs Temp 36.7 C 08/02/17 08:26 Pulse 84 08/02/17 08:26 Resp 20 08/02/17 08:26 BP 119/57 L 08/02/17 08:26 Pulse Ox 95 08/02/17 08:26 Weight - Most Recent: 195.907 kg I&O - Last 24 Hours: Intake & Output 08/01/17 08/02/17 08/02/17 22:59 06:59 14:59 Intake Total 1330 600 120 Output Total 2520 820 Balance -1190 -220 120 Lab Results Last 24 Hours: Laboratory Results - last 24 hr 08/02/17 08/02/17 08/02/17 Range/Units 06:16 06:16 06:16 WBC 12.69 H (4.23-9.07) K/mm3 RBC 4.44 L (4.63-6.08) M/mm3 Hgb 11.7 L (13.7-17.5) gm/L Hct 36.8 L (40.1-51.0) % MCV 82.9 (79.0-92.2) fl MCH 26.4 (25.7-32.2) pg MCHC 31.8 L (32.2-35.5) g/dl RDW Std Deviation 48.5 H (35.1-43.9) fL Plt Count 432 H (163-337) K/mm3 MPV 10.4 (9.4-12.3) fl Neut % (Auto) 72.0 H (34.0-67.9) % Lymph % (Auto) 14.7 L (21.8-53.1) % [place] % (Auto) 9.9 (5.3-12.2) % Eos % (Auto) 1.8 (0.8-7.0) Baso % (Auto) 0.2 (0.1-1.2) % Neut # (Auto) 9.13 H (1.78-5.38) K/mm3 Lymph # (Auto) 1.87 (1.32-3.57) K/mm3 [place] # (Auto) 1.25 H (0.30-0.82) K/mm3 Eos # (Auto) 0.23 (0.04-0.54) K/mm3 Baso # (Auto) 0.03 (0.01-0.08) K/mm3 Manual Slide Review Abnormal smear Sodium 135 L (136-145) mEq/L Potassium 3.9 (3.5-5.1) mEq/L Chloride 102 (98-107) mEq/L Carbon Dioxide 25 (21-32) mEq/L Anion Gap 11.9 (5-15) BUN 12 (7-18) mg/dL Creatinine 1.1 (0.7-1.3) mg/dL Est Cr Clr Drug Dosing 103.49 mL/min Estimated GFR (MDRD) > 60 (>60) mL/min BUN/Creatinine Ratio 10.9 L (14-18) Glucose 104 (74-106) mg/dL Lactic Acid 0.9 (0.4-2.0) mmol/L Calcium 8.7 (8.5-10.1) mg/dL Magnesium 2.1 (1.8-2.4) mg/dl C-Reactive Protein 13.5 H* (<1.0) mg/dL Samir Results Last 24 Hours: Microbiology 07/27/17 21:10 Aerobic Blood Culture - Preliminary Blood - Venous - Lab Draw NO GROWTH AFTER 5 DAYS Anaerobic Blood Culture - Preliminary NO GROWTH AFTER 5 DAYS Med Orders - Current: Current Medications Acetaminophen (Tylenol) 650 mg PO Q4H PRN PRN Reason: Pain (Mild 1-3)/fever Hydrocodone Bitart/Acetaminophen ([place] 325-5 Mg) 1 tab PO Q4H PRN PRN Reason: Pain (moderate 4-6) Albuterol/Ipratropium (Duoneb 3.0-0.5 Mg/3 Ml) 3 ml NEB Q4H PRN PRN Reason: Shortness Of Breath/wheezing Baclofen (Lioresal) 0 mg PO ASDIRECTED PRN PRN Reason: PUMP IN PLACE Bisacodyl (Dulcolax) 5 mg PO DAILY PRN PRN Reason: Constipation Docusate Sodium (Colace) 100 mg PO BID PRN PRN Reason: Constipation Enoxaparin Sodium (Lovenox) 50 mg SUBCUT DAILY [facility] Last Admin: 08/02/17 09:54 Dose: 50 mg Hydralazine HCl (Apresoline) 20 mg IVPUSH Q4H PRN PRN Reason: Hypertension Hydromorphone HCl (Dilaudid) 1 mg IVPUSH Q4H PRN PRN Reason: Pain (severe 7-10) Promethazine HCl 12.5 mg/ (Sodium Chloride) 50.5 mls @ 100 mls/hr IV Q6H PRN PRN Reason: Nausea/Vomiting Lorazepam (Ativan) 2 mg IVPUSH Q4H PRN PRN Reason: Seizures Lorazepam (Ativan) 1 mg IV Q6H PRN PRN Reason: Anxiety Metoprolol Tartrate (Lopressor) 5 mg IVPUSH Q4H PRN PRN Reason: Tachycardia Neomycin/Polymyxin/Bacitracin (Neosporin Oint) 0 gm TOP DAILY@1030 [facility] Stop: 08/06/17 10:31 Last Admin: 08/02/17 09:56 Dose: 1 applic Ondansetron HCl (Zofran) 4 mg IV Q6H PRN PRN Reason: Nausea/Vomiting Dr. Guerrero's Pure (Epsom Salts) 0 each TOP DAILY@1000 [facility] Stop: 08/06/17 10:01 Last Admin: 08/02/17 09:56 Dose: 1 each Polyethylene Glycol (Miralax) 17 gm PO DAILY PRN PRN Reason: Constipation Senna/Docusate Sodium (Senna Plus) 1 tab PO BID PRN PRN Reason: Constipation Sertraline HCl (Zoloft) 25 mg PO BEDTIME [facility] Last Admin: 08/01/17 21:28 Dose: Not Given Sodium Chloride (Saline Flush) 10 ml FLUSH ASDIRECTED PRN PRN Reason: Keep Vein Open Last Admin: 07/27/17 20:25 Dose: 10 ml Temazepam (Restoril) 15 mg PO BEDTIME PRN PRN Reason: Sleep Trimethoprim/Sulfamethoxazole (Septra Ds) 1 tab PO BID [facility] Last Admin: 08/02/17 09:55 Dose: 1 tab Discontinued Medications Acetaminophen (Tylenol) 975 mg PO NOW ONE Stop: 07/27/17 19:05 Last Admin: 07/27/17 20:24 Dose: 975 mg Aluminum Sulfate/Calcium Acetate ([place] Powder) 2 each TOP DAILY@1000 [facility] Stop: 08/06/17 10:01 Last Admin: 07/31/17 10:21 Dose: 2 each Aluminum Sulfate/Calcium Acetate ([place] Powder) 1 each TOP DAILY@1000 [facility] Stop: 08/06/17 10:01 Bumetanide (Bumex) 0.5 mg IVPUSH ONETIME ONE Stop: 07/28/17 07:01 Last Admin: 07/28/17 08:25 Dose: 0.5 mg Bumetanide (Bumex) 1 mg IVPUSH ONETIME ONE Stop: 07/27/17 21:38 Last Admin: 07/27/17 22:25 Dose: 1 mg Bumetanide (Bumex) 1 mg IVPUSH ONETIME ONE Stop: 07/28/17 23:31 Last Admin: 07/28/17 23:47 Dose: 1 mg Bupivacaine HCl (Marcaine 0.5%) 30 ml INJECT ONETIME ONE Stop: 07/30/17 04:56 Last Admin: 07/30/17 11:22 Dose: 5 ml Bupivacaine HCl (Sensorcaine-Mpf 0.5%) 5 ml INJECT ONETIME ONE Stop: 07/30/17 09:31 Last Admin: 07/30/17 10:00 Dose: 5 ml Enoxaparin Sodium (Lovenox) 40 mg SUBCUT DAILY [facility] Enoxaparin Sodium (Lovenox) 40 mg SUBCUT DAILY [facility] Last Admin: 07/28/17 08:27 Dose: 40 mg Enoxaparin Sodium (Lovenox) 40 mg SUBCUT ONETIME ONE Stop: 07/27/17 21:21 Last Admin: 07/27/17 22:23 Dose: 40 mg Hydromorphone HCl (Dilaudid) 1 mg IVPUSH Q4H PRN PRN Reason: Pain (severe 7-10) Sodium Chloride (Normal Saline) 1,000 mls @ 125 mls/hr IV ASDIRECTED [facility] Last Admin: 07/29/17 16:26 Dose: 125 mls/hr Vancomycin HCl 2 gm/ Sodium (Chloride) 250 mls @ 250 mls/hr IV ONETIME ONE Stop: 07/27/17 20:14 Last Admin: 07/27/17 20:44 Dose: Not Given Vancomycin HCl 2 gm/ Sodium (Chloride) 500 mls @ 250 mls/hr IV ONETIME ONE Stop: 07/27/17 22:44 Last Admin: 07/27/17 20:35 Dose: 250 mls/hr Sodium Chloride (Normal Saline) Confirm Administered Dose 500 mls @ as directed .ROUTE .STK-MED ONE Stop: 07/27/17 20:36 Last Admin: 07/28/17 10:56 Dose: Not Given Vancomycin HCl 2 gm/ Sodium (Chloride) 500 mls @ 250 mls/hr IV Q12H [facility] Last Admin: 07/28/17 08:16 Dose: 250 mls/hr Vancomycin HCl 2 gm/ Sodium (Chloride) 500 mls @ 250 mls/hr IV Q8H [facility] Last Admin: 07/29/17 15:12 Dose: Not Given Potassium Chloride 10 meq/ (Premix) 100 mls @ 100 mls/hr IV Q1H [facility] Stop: 07/28/17 21:59 Potassium Chloride 10 meq/ (Premix) 100 mls @ 100 mls/hr IV Q1H [facility] Stop: 07/28/17 23:59 Last Admin: 07/28/17 23:46 Dose: 100 mls/hr Vancomycin HCl 1 gm/Vancomycin HCl 500 mg/ Sodium Chloride 500 mls @ 250 mls/ hr IV Q8H [facility] Last Admin: 07/29/17 15:12 Dose: Not Given Vancomycin HCl 1 gm/Vancomycin HCl 500 mg/ Sodium Chloride 500 mls @ 250 mls/ hr IV Q8H [facility] Last Admin: 07/30/17 09:29 Dose: 250 mls/hr Magnesium Sulfate 2 gm/ Premix 50 mls @ 25 mls/hr IV ONETIME ONE Stop: 07/31/17 17:56 Last Admin: 07/31/17 16:32 Dose: 25 mls/hr Lidocaine HCl (Xylocaine 1%) 20 ml INJECT ONETIME ONE Stop: 07/30/17 04:59 Last Admin: 07/30/17 11:22 Dose: 5 ml Lidocaine HCl (Xylocaine 1%) 5 ml INJECT ONETIME ONE Stop: 07/30/17 09:31 Last Admin: 07/30/17 10:00 Dose: 5 ml Magnesium Sulfate (Pharmacy To Dose - Magnesium Replacement) 0 dose .XX ASDIRECTED PRN PRN Reason: RX TO WATCH MAG LEVELS Potassium Chloride (Pharmacy To Dose - Potassium Replacement) 0 dose .XX ASDIRECTED PRN PRN Reason: RX TO WATCH K LEVELS Potassium Chloride (Klor-Con M20) 40 meq PO Q4H [facility] Stop: 07/29/17 13:46 Last Admin: 07/29/17 13:27 Dose: 40 meq Potassium Chloride (Klor-Con M20) 40 meq PO BID [facility] Stop: 07/31/17 09:01 Last Admin: 07/31/17 09:10 Dose: 40 meq Vancomycin HCl (Vancomycin) 3,061.755 mg 15 mg/kg (3061.755 mg) IV Q12H [facility] Vancomycin HCl (Pharmacy To Dose - Vancomycin) 0 dose .XX ASDIRECTED PRN PRN Reason: RX TO DOSE VANCOMYCIN - Exam Quality Assessment: DVT Prophylaxis General: Alert, Oriented, Cooperative, No Acute Distress HEENT: Pupils Equal, Pupils Reactive, EOMI Neck: Trachea Midline, No JVD Lungs: Normal Respiratory Effort Cardiovascular: Regular Rate, Regular Rhythm GI/Abdominal Exam: Normal Bowel Sounds, Soft, Non-Tender, No Organomegaly, No Distention (Male) Exam: Deferred Back Exam: Normal Inspection Extremities: Non-Tender, Pedal Edema Skin: Warm, Dry, Intact Wound/Incisions: Dressing Dry and Intact Neurological: No New Focal Deficit, Normal Speech Psy/Mental Status: Alert - Problem List Review Problem List Initiated/Reviewed/Updated: Yes - My Orders Last 24 Hours: My Active Orders 08/01/17 21:00 Sertraline [Zoloft] 25 mg PO BEDTIME 08/03/17 05:00 BASIC METABOLIC PANEL,BMP [CHEM] DAILY CBC WITH AUTO DIFF [HEME] DAILY CRP [C-REACTIVE PROTEIN] [CHEM] DAILY LACTIC ACID [CHEM] DAILY MAGNESIUM [CHEM] DAILY - Assessment Assessment:: POD 1, Dr Sargent note below written 07/30/17. 1.) Obtained written/signed consent for Partial Ingrown toenail Avulsion, LEFT great toenail @ Tibial border under local anesthetic blockade. 2.) Performed LEFT hallux, tibial border partial avulsion under 10ccs 1:1 mixture of 2% Lidocaine pl. + 0.5% Marcaine pl. at base of LEFT hallux. Anesthesia was tested & found to be adequate, after which a partial avulsion of the LEFT hallux, distal tibial toenail border was completed & the wound site was dressed with Silvadine 1% cream, 4x4 guaze, and 1" coban. 3.) He will begin bedside Epsom salt soaks after 24 hours, followed by antibiotic dressing/bandaide for 7 consequetive days. 4.) He may F/U in office upon D/C if needed. - Plan Plan:: Assessment/Plan: Acute: SSTI/Cellulitis, improving - Risk Factors: Immobile for the most part and Poor Hygiene - He is not diabetic - Weeping, diffusely red and edematous right leg - IV Vancomycin 1 gram BID (trough level goal bet 15-20)--> switch to PO Septra BID - Elevate Leg and supportive care - Wound Cx- no growth - Duplex U/S report reads lymph nodes within the right groin and right Marcus believed to be reactive. Subcutaneous edema within the pelvis. No evidence of acute DVT within the right lower extremity or within the left common femoral vein. - DVT PPx: Lovenox SubQ daily - Dr. Pittman consulted and recommending antibiotics, elevation, and increased activity as tolerated Leukocytosis, improving - 2/2 Above infection Hypoalbuminemia - Albumin 2.1 - Dietary consult Morbid Obesity - BMI 56.2--> 53.2; diet change for 1999 erlinda adjustment for wound care needs - Thyroid panel - TSH 1.753, T4 1.56; A1C - 6.1 - Dietary for weight management--->diet changed to heart healthy 2000 calories, 1 tray, no snacks Spinal Injury with Chronic Back Spasm - On Baclofen pump Hypokalemia -Potassium 2.8--> 3.0-->3.6 -Supplement and monitor Ingrown Toenail -Dr. Sargent consulted -Removal of portion of left great toenail at tibial border preformed today -F/U with Dr. Sargent outpatient as needed Plan: He is clinically stable Routine AM Labs Blood Cx negative PT/OT - recommending SNF PT for wound care Starting foot soaks as prescribed by [employer] [facility], Dr Sargent Fall Risk GI PPx: H2B SW/CM for d/c planning Additional orders as above Code status: 1; PCP: Dr. Alicia LOS >96 hrs pending SNF placement
[2017-08-02] MEDS: Sertraline 25 MG Tab PO SCH (20:28)
[2017-08-03] MEDS: Enoxaparin 60 MG/0.6 ML Syringe SUBCUT SCH (09:08)
[2017-08-03] MEDS: Sulfamethoxazole/Trimethoprim 800-160 MG Tab PO SCH ×2 (09:08→20:48)
[2017-08-03] MEDS: Bacitracin/Neomycin/Polymyxin B Oint 15 GM Tube TOP SCH (11:27)
[2017-08-03] MEDS: [UNRECOGNIZED DRUG - REMARK] TOP SCH (11:27)
--- NOTE | 2017-08-03 13:34 | PCM.PN ---
- General Info Date of Service: 08/03/17 Functional Status: Reports: Pain Controlled, Tolerating Diet, Urinating - Review of Systems General: Reports: No Symptoms HEENT: Reports: No Symptoms Pulmonary: Reports: No Symptoms Cardiovascular: Reports: No Symptoms Gastrointestinal: Reports: No Symptoms Genitourinary: Reports: No Symptoms Musculoskeletal: Reports: No Symptoms Skin: Reports: No Symptoms Neurological: Reports: No Symptoms Psychiatric: Reports: No Symptoms - Patient Data Vitals - Most Recent: Last Vital Signs Temp 36.6 C 08/03/17 12:36 Pulse 90 08/03/17 12:36 Resp 18 08/03/17 12:36 BP 137/72 08/03/17 12:36 Pulse Ox 95 08/03/17 12:36 Weight - Most Recent: 195.907 kg I&O - Last 24 Hours: Intake & Output 08/02/17 08/03/17 08/03/17 22:59 06:59 14:59 Intake Total 760 Output Total 1375 Balance -615 Lab Results Last 24 Hours: Laboratory Results - last 24 hr 08/03/17 08/03/17 08/03/17 Range/Units 05:45 05:45 05:45 WBC 12.14 H (4.23-9.07) K/mm3 RBC 4.40 L (4.63-6.08) M/mm3 Hgb 11.9 L (13.7-17.5) gm/L Hct 36.4 L (40.1-51.0) % MCV 82.7 (79.0-92.2) fl MCH 27.0 (25.7-32.2) pg MCHC 32.7 (32.2-35.5) g/dl RDW Std Deviation 48.2 H (35.1-43.9) fL Plt Count 464 H (163-337) K/mm3 MPV 10.6 (9.4-12.3) fl Neut % (Auto) 70.1 H (34.0-67.9) % Lymph % (Auto) 16.1 L (21.8-53.1) % [place] % (Auto) 10.7 (5.3-12.2) % Eos % (Auto) 2.1 (0.8-7.0) Baso % (Auto) 0.2 (0.1-1.2) % Neut # (Auto) 8.50 H (1.78-5.38) K/mm3 Lymph # (Auto) 1.96 (1.32-3.57) K/mm3 [place] # (Auto) 1.30 H (0.30-0.82) K/mm3 Eos # (Auto) 0.25 (0.04-0.54) K/mm3 Baso # (Auto) 0.03 (0.01-0.08) K/mm3 Manual Slide Review Abnormal smear Sodium 135 L (136-145) mEq/L Potassium 4.3 (3.5-5.1) mEq/L Chloride 102 (98-107) mEq/L Carbon Dioxide 23 (21-32) mEq/L Anion Gap 14.3 (5-15) BUN 15 (7-18) mg/dL Creatinine 1.2 (0.7-1.3) mg/dL Est Cr Clr Drug Dosing 94.87 mL/min Estimated GFR (MDRD) > 60 (>60) mL/min BUN/Creatinine Ratio 12.5 L (14-18) Glucose 108 H (74-106) mg/dL Lactic Acid 0.7 (0.4-2.0) mmol/L Calcium 9.2 (8.5-10.1) mg/dL Magnesium 2.1 (1.8-2.4) mg/dl C-Reactive Protein 13.6 H* (<1.0) mg/dL Samir Results Last 24 Hours: Microbiology 07/27/17 21:10 Aerobic Blood Culture - Preliminary Blood - Venous - Lab Draw NO GROWTH AFTER 6 DAYS Anaerobic Blood Culture - Preliminary NO GROWTH AFTER 6 DAYS 07/27/17 19:48 Aerobic Blood Culture - Preliminary Blood - Venous NO GROWTH AFTER 6 DAYS Anaerobic Blood Culture - Preliminary NO GROWTH AFTER 6 DAYS Med Orders - Current: Current Medications Acetaminophen (Tylenol) 650 mg PO Q4H PRN PRN Reason: Pain (Mild 1-3)/fever Hydrocodone Bitart/Acetaminophen (Lorain 325-5 Mg) 1 tab PO Q4H PRN PRN Reason: Pain (moderate 4-6) Albuterol/Ipratropium (Duoneb 3.0-0.5 Mg/3 Ml) 3 ml NEB Q4H PRN PRN Reason: Shortness Of Breath/wheezing Baclofen (Lioresal) 0 mg PO ASDIRECTED PRN PRN Reason: PUMP IN PLACE Bisacodyl (Dulcolax) 5 mg PO DAILY PRN PRN Reason: Constipation Docusate Sodium (Colace) 100 mg PO BID PRN PRN Reason: Constipation Enoxaparin Sodium (Lovenox) 50 mg SUBCUT DAILY [facility] Last Admin: 08/03/17 09:08 Dose: 50 mg Hydralazine HCl (Apresoline) 20 mg IVPUSH Q4H PRN PRN Reason: Hypertension Hydromorphone HCl (Dilaudid) 1 mg IVPUSH Q4H PRN PRN Reason: Pain (severe 7-10) Promethazine HCl 12.5 mg/ (Sodium Chloride) 50.5 mls @ 100 mls/hr IV Q6H PRN PRN Reason: Nausea/Vomiting Lorazepam (Ativan) 2 mg IVPUSH Q4H PRN PRN Reason: Seizures Lorazepam (Ativan) 1 mg IV Q6H PRN PRN Reason: Anxiety Metoprolol Tartrate (Lopressor) 5 mg IVPUSH Q4H PRN PRN Reason: Tachycardia Neomycin/Polymyxin/Bacitracin (Neosporin Oint) 0 gm TOP DAILY@1030 [facility] Stop: 08/06/17 10:31 Last Admin: 08/03/17 11:27 Dose: 1 applic Ondansetron HCl (Zofran) 4 mg IV Q6H PRN PRN Reason: Nausea/Vomiting Dr. Guerrero'adina Pure (Epsom Salts) 0 each TOP DAILY@1000 [facility] Stop: 08/06/17 10:01 Last Admin: 08/03/17 11:27 Dose: 1 each Polyethylene Glycol (Miralax) 17 gm PO DAILY PRN PRN Reason: Constipation Senna/Docusate Sodium (Senna Plus) 1 tab PO BID PRN PRN Reason: Constipation Sertraline HCl (Zoloft) 25 mg PO BEDTIME [facility] Last Admin: 08/02/17 20:28 Dose: Not Given Sodium Chloride (Saline Flush) 10 ml FLUSH ASDIRECTED PRN PRN Reason: Keep Vein Open Last Admin: 07/27/17 20:25 Dose: 10 ml Temazepam (Restoril) 15 mg PO BEDTIME PRN PRN Reason: Sleep Trimethoprim/Sulfamethoxazole (Septra Ds) 1 tab PO BID [facility] Last Admin: 08/03/17 09:08 Dose: 1 tab Discontinued Medications Acetaminophen (Tylenol) 975 mg PO NOW ONE Stop: 07/27/17 19:05 Last Admin: 07/27/17 20:24 Dose: 975 mg Aluminum Sulfate/Calcium Acetate ([place] Powder) 2 each TOP DAILY@1000 [facility] Stop: 08/06/17 10:01 Last Admin: 07/31/17 10:21 Dose: 2 each Aluminum Sulfate/Calcium Acetate ([place] Powder) 1 each TOP DAILY@1000 [facility] Stop: 08/06/17 10:01 Bumetanide (Bumex) 0.5 mg IVPUSH ONETIME ONE Stop: 07/28/17 07:01 Last Admin: 07/28/17 08:25 Dose: 0.5 mg Bumetanide (Bumex) 1 mg IVPUSH ONETIME ONE Stop: 07/27/17 21:38 Last Admin: 07/27/17 22:25 Dose: 1 mg Bumetanide (Bumex) 1 mg IVPUSH ONETIME ONE Stop: 07/28/17 23:31 Last Admin: 07/28/17 23:47 Dose: 1 mg Bupivacaine HCl (Marcaine 0.5%) 30 ml INJECT ONETIME ONE Stop: 07/30/17 04:56 Last Admin: 07/30/17 11:22 Dose: 5 ml Bupivacaine HCl (Sensorcaine-Mpf 0.5%) 5 ml INJECT ONETIME ONE Stop: 07/30/17 09:31 Last Admin: 07/30/17 10:00 Dose: 5 ml Enoxaparin Sodium (Lovenox) 40 mg SUBCUT DAILY [facility] Enoxaparin Sodium (Lovenox) 40 mg SUBCUT DAILY [facility] Last Admin: 07/28/17 08:27 Dose: 40 mg Enoxaparin Sodium (Lovenox) 40 mg SUBCUT ONETIME ONE Stop: 07/27/17 21:21 Last Admin: 07/27/17 22:23 Dose: 40 mg Hydromorphone HCl (Dilaudid) 1 mg IVPUSH Q4H PRN PRN Reason: Pain (severe 7-10) Sodium Chloride (Normal Saline) 1,000 mls @ 125 mls/hr IV ASDIRECTED [facility] Last Admin: 07/29/17 16:26 Dose: 125 mls/hr Vancomycin HCl 2 gm/ Sodium (Chloride) 250 mls @ 250 mls/hr IV ONETIME ONE Stop: 07/27/17 20:14 Last Admin: 07/27/17 20:44 Dose: Not Given Vancomycin HCl 2 gm/ Sodium (Chloride) 500 mls @ 250 mls/hr IV ONETIME ONE Stop: 07/27/17 22:44 Last Admin: 07/27/17 20:35 Dose: 250 mls/hr Sodium Chloride (Normal Saline) Confirm Administered Dose 500 mls @ as directed .ROUTE .STK-MED ONE Stop: 07/27/17 20:36 Last Admin: 07/28/17 10:56 Dose: Not Given Vancomycin HCl 2 gm/ Sodium (Chloride) 500 mls @ 250 mls/hr IV Q12H [facility] Last Admin: 07/28/17 08:16 Dose: 250 mls/hr Vancomycin HCl 2 gm/ Sodium (Chloride) 500 mls @ 250 mls/hr IV Q8H [facility] Last Admin: 07/29/17 15:12 Dose: Not Given Potassium Chloride 10 meq/ (Premix) 100 mls @ 100 mls/hr IV Q1H [facility] Stop: 07/28/17 21:59 Potassium Chloride 10 meq/ (Premix) 100 mls @ 100 mls/hr IV Q1H [facility] Stop: 07/28/17 23:59 Last Admin: 07/28/17 23:46 Dose: 100 mls/hr Vancomycin HCl 1 gm/Vancomycin HCl 500 mg/ Sodium Chloride 500 mls @ 250 mls/ hr IV Q8H [facility] Last Admin: 07/29/17 15:12 Dose: Not Given Vancomycin HCl 1 gm/Vancomycin HCl 500 mg/ Sodium Chloride 500 mls @ 250 mls/ hr IV Q8H [facility] Last Admin: 07/30/17 09:29 Dose: 250 mls/hr Magnesium Sulfate 2 gm/ Premix 50 mls @ 25 mls/hr IV ONETIME ONE Stop: 07/31/17 17:56 Last Admin: 07/31/17 16:32 Dose: 25 mls/hr Lidocaine HCl (Xylocaine 1%) 20 ml INJECT ONETIME ONE Stop: 07/30/17 04:59 Last Admin: 07/30/17 11:22 Dose: 5 ml Lidocaine HCl (Xylocaine 1%) 5 ml INJECT ONETIME ONE Stop: 07/30/17 09:31 Last Admin: 07/30/17 10:00 Dose: 5 ml Magnesium Sulfate (Pharmacy To Dose - Magnesium Replacement) 0 dose .XX ASDIRECTED PRN PRN Reason: RX TO WATCH MAG LEVELS Potassium Chloride (Pharmacy To Dose - Potassium Replacement) 0 dose .XX ASDIRECTED PRN PRN Reason: RX TO WATCH K LEVELS Potassium Chloride (Klor-Con M20) 40 meq PO Q4H [place] Stop: 07/29/17 13:46 Last Admin: 07/29/17 13:27 Dose: 40 meq Potassium Chloride (Klor-Con M20) 40 meq PO BID [facility] Stop: 07/31/17 09:01 Last Admin: 07/31/17 09:10 Dose: 40 meq Vancomycin HCl (Vancomycin) 3,061.755 mg 15 mg/kg (3061.755 mg) IV Q12H [facility] Vancomycin HCl (Pharmacy To Dose - Vancomycin) 0 dose .XX ASDIRECTED PRN PRN Reason: RX TO DOSE VANCOMYCIN - Exam Quality Assessment: DVT Prophylaxis General: Alert, Oriented, Cooperative, No Acute Distress HEENT: Pupils Equal, Pupils Reactive, EOMI Neck: Trachea Midline, No JVD Lungs: Normal Respiratory Effort Cardiovascular: Regular Rate, Regular Rhythm GI/Abdominal Exam: Normal Bowel Sounds, Soft, Non-Tender, No Organomegaly, No Distention (Male) Exam: Deferred Back Exam: Normal Inspection Extremities: Normal Inspection, Non-Tender, Pedal Edema Skin: Warm Wound/Incisions: Dressing Dry and Intact Neurological: No New Focal Deficit, Normal Speech Psy/Mental Status: Alert, Normal Affect, Normal Mood - Problem List Review Problem List Initiated/Reviewed/Updated: Yes - My Orders Last 24 Hours: My Active Orders 08/02/17 12:40 Consult to Physical Therapy [PT Evaluation and Treatment] [CONS] Routine - Assessment Assessment:: POD 3, Dr Sargent note below written 07/30/17. 1.) Obtained written/signed consent for Partial Ingrown toenail Avulsion, LEFT great toenail @ Tibial border under local anesthetic blockade. 2.) Performed LEFT hallux, tibial border partial avulsion under 10ccs 1:1 mixture of 2% Lidocaine pl. + 0.5% Marcaine pl. at base of LEFT hallux. Anesthesia was tested & found to be adequate, after which a partial avulsion of the LEFT hallux, distal tibial toenail border was completed & the wound site was dressed with Silvadine 1% cream, 4x4 guaze, and 1" coban. 3.) He will begin bedside Epsom salt soaks after 24 hours, followed by antibiotic dressing/bandaide for 7 consequetive days. 4.) He may F/U in office upon D/C if needed. - Plan Plan:: Assessment/Plan: Acute: SSTI/Cellulitis, improving - Risk Factors: Immobile for the most part and Poor Hygiene - He is not diabetic - Weeping, diffusely red and edematous right leg - IV Vancomycin 1 gram BID (trough level goal bet 15-20)--> switch to PO Septra BID - Elevate Leg and supportive care - Wound Cx- no growth - Duplex U/S report reads lymph nodes within the right groin and right Marcus believed to be reactive. Subcutaneous edema within the pelvis. No evidence of acute DVT within the right lower extremity or within the left common femoral vein. - DVT PPx: Lovenox SubQ daily - Dr. Pittman consulted and recommending antibiotics, elevation, and increased activity as tolerated Leukocytosis, improving - 2/2 Above infection Hypoalbuminemia - Albumin 2.1 - Dietary consult Morbid Obesity - BMI 56.2--> 53.2; diet change for 1999 erlinda adjustment for wound care needs - Thyroid panel - TSH 1.753, T4 1.56; A1C - 6.1 - Dietary for weight management--->diet changed to heart healthy 2000 calories, 1 tray, no snacks Spinal Injury with Chronic Back Spasm - On Baclofen pump Hypokalemia -Potassium 2.8--> 3.0-->3.6 -Supplement and monitor Ingrown Toenail -Dr. Sargent consulted -Removal of portion of left great toenail at tibial border preformed today -F/U with Dr. Sargent outpatient as needed Plan: He is clinically stable Routine AM Labs Blood Cx negative PT/OT - recommending SNF PT for wound care Starting foot soaks as prescribed by [place], Dr Sargent Fall Risk GI PPx: H2B SW/CM for d/c planning Additional orders as above Code status: 1; PCP: Dr. Alicia LOS >96 hrs pending SNF placement; DC to [place] on 08/04/17
[2017-08-03] MEDS: Sertraline 25 MG Tab PO SCH (20:48)
--- NOTE | 2017-08-04 07:40 | PCM.DCSUM1 ---
Discharge Summary - Hospital Course Free Text/Narrative:: This is a 41 yo morbidly obese white male with past medical hx/o spinal injury on baclofen pump who comes in for evaluation of worsening leg edema and erythema. Patient carries no hx/o diabetes or immuno-suppressed state. His initial workup in the emergency department shows a CBC remarkable for WBC of 19.86, hemoglobin of 12.9, hematocrit of 39.6, RDW of 45.3, neutrophils of 81.8%, lymphocytes of 6.9%, and eosinophils 0.1%. His chemistry is remarkable for sodium of 135, total bilirubin of 2.7, AST of 51, CRP of 38.9, total protein of 8.3, and albumin of 2.1. He is being admitted for lower extremity cellulitis. - Discharge Data Discharge Date: 08/04/17 Discharge Disposition: DC/Tfer to [facility] 03 Condition: Good - Discharge Diagnosis/Problem(s) (1) Cellulitis SNOMED Code(s): 160864002 ICD Code: L03.90 - CELLULITIS, UNSPECIFIED Status: Acute Priority: High Current Visit: Yes Qualifiers: Site of cellulitis: extremity Site of cellulitis of extremity: lower extremity Laterality: right Qualified Code(s): L03.115 - Cellulitis of right lower limb (2) Hypoalbuminemia SNOMED Code(s): 234950349 ICD Code: E88.09 - OTH DISORDERS OF PLASMA-PROTEIN METABOLISM, NEC Status: Acute Priority: Medium Current Visit: Yes (3) Hypokalemia SNOMED Code(s): 59995665 ICD Code: E87.6 - HYPOKALEMIA Status: Resolved Priority: High Current Visit: Yes (4) Ingrown left big toenail SNOMED Code(s): 236656482 ICD Code: L60.0 - INGROWING NAIL Status: Resolved Priority: Medium Current Visit: Yes (5) Leukocytosis SNOMED Code(s): 726249549, 691479519 ICD Code: D72.829 - ELEVATED WHITE BLOOD CELL COUNT, UNSPECIFIED Status: Acute Priority: Medium Current Visit: Yes Qualifiers: Leukocytosis type: unspecified Qualified Code(s): D72.829 - Elevated white blood cell count, unspecified (6) History of spinal cord injury SNOMED Code(s): 83125297896880 ICD Code: Z87.828 - PERSONAL HISTORY OF OTH (HEALED) PHYSICAL INJURY AND TRAUMA Status: Chronic Priority: Medium Current Visit: Yes (7) Morbid obesity with BMI of 50.0-59.9, adult SNOMED Code(s): 871464261 ICD Code: E66.01 - MORBID (SEVERE) OBESITY DUE TO EXCESS CALORIES; Z68.43 - BODY MASS INDEX (BMI) 50-59.9 , ADULT Status: Chronic Priority: Medium Current Visit: Yes - Patient Summary/Data Operative Procedure(s) Performed: Ingrown toenail removal per Dr. Sargent, Podiatry Complications: None Consults: Consultations 07/27/17 20:58 Consult to Case Management [CONS] Routine Consult to Rn Plastic Surgery [CONS] Routine Consult to Hog Room Supervisor [CONS] Routine Consult to Spiritual Care [CONS] Routine OT Evaluation and Treatment [CONS] Routine PT Evaluation and Treatment [CONS] Routine 07/28/17 00:10 PT Evaluation and Treatment [CONS] Routine 07/28/17 15:08 Consult to Physician [CONS] Routine 08/02/17 12:40 Consult to Physical Therapy [PT Evaluation and Treatment] [CONS] Routine Labs Pending at D/C: None Recommended Follow-up Testing/Procedures: Wound care RLE cellulitis per PT. Wound care left foot great toenail as per Dr. Sargent recommendations. Lymphedema care LLE. Physical and occupational therapy to evaluate and treat. Follow up with PCP, Dr. Alicia and Media Associate Dr. Sargent both within one week of DC. Planned Operative Procedure(s) after DC: None Hospital Course: POD 3, Dr Sargent note below written 07/30/17. 1.) Obtained written/signed consent for Partial Ingrown toenail Avulsion, LEFT great toenail @ Tibial border under local anesthetic blockade. 2.) Performed LEFT hallux, tibial border partial avulsion under 10ccs 1:1 mixture of 2% Lidocaine pl. + 0.5% Marcaine pl. at base of LEFT hallux. Anesthesia was tested & found to be adequate, after which a partial avulsion of the LEFT hallux, distal tibial toenail border was completed & the wound site was dressed with Silvadine 1% cream, 4x4 guaze, and 1" coban. 3.) He will begin bedside Epsom salt soaks after 24 hours, followed by antibiotic dressing/bandaide for 7 consequetive days. 4.) He may F/U in office upon D/C if needed. - Plan Plan:: Assessment/Plan: Acute: SSTI/Cellulitis, improving - Risk Factors: Immobile for the most part and Poor Hygiene - He is not diabetic - Weeping, diffusely red and edematous right leg - IV Vancomycin 1 gram BID (trough level goal bet 15-20)--> switch to PO Septra BID - Elevate Leg and supportive care - Wound Cx- no growth - Duplex U/S report reads lymph nodes within the right groin and right Marcus believed to be reactive. Subcutaneous edema within the pelvis. No evidence of acute DVT within the right lower extremity or within the left common femoral vein. - DVT PPx: Lovenox SubQ daily - Dr. Pittman consulted and recommending antibiotics, elevation, and increased activity as tolerated Leukocytosis, improving - 2/2 Above infection Hypoalbuminemia - Albumin 2.1 - Dietary consult Morbid Obesity - BMI 56.2--> 53.2; diet change for 1999 erlinda adjustment for wound care needs - Thyroid panel - TSH 1.753, T4 1.56; A1C - 6.1 - Dietary for weight management--->diet changed to heart healthy 2000 calories, 1 tray, no snacks Spinal Injury with Chronic Back Spasm - On Baclofen pump Hypokalemia--resolved -Potassium 2.8--> 3.0-->3.6 -Supplement and monitor Ingrown Toenail---as above per Dr. Sargent -Dr. Sargent consulted -Removal of portion of left great toenail at tibial border preformed today -F/U with Dr. Sargent outpatient as needed Plan: He is clinically stable Routine AM Labs Blood Cx negative PT/OT - recommending SNF PT for wound care Starting foot soaks as prescribed by Media Associate, Dr Sargent Fall Risk GI PPx: H2B SW/CM for d/c planning Additional orders as above Code status: 1; PCP: Dr. Alicia LOS >96 hrs pending SNF placement; DC to [place] on 08/04/17 - Patient Instructions Diet: Usual Diet as Tolerated, Drink 8-10+ Glasses/Day Activity: As Tolerated Driving: Do Not Drive Showering/Bathing: May Shower Wound/Incision Care: Keep Operative Site/Wound Site Clean and Dry, Change Dressing Daily Notify Provider of: Fever, Increased Pain, Swelling and Redness, Drainage - Discharge Plan Prescriptions/Med Rec: Bifidobacter. Bifidum/B.Longum [Florajen Bifidoblend] 460 mg PO DAILY #30 capsule Sulfamethoxazole/Trimethoprim [IJD: Sulfamethoxazole/Trimethoprim DS] 1 tab PO BID #20 tablet Home Medications: Home Meds Aspirin [Halfprin] 81 mg PO DAILY 07/27/17 [History] Baclofen [Lioresal Intrathecal] 0.5 mg IMPLANT ASDIRECTED 07/27/17 [History] Multivitamin with Minerals [Multiple Vitamin] 1 tab PO DAILY 07/27/17 [History] Bifidobacter. Bifidum/B.Longum [Florajen Bifidoblend] 460 mg PO DAILY #30 capsule 08/04/17 [Rx] Patient's Own Medication [Ptom] 0 each TOP DAILY@1000 each 08/04/17 [Rx] Sulfamethoxazole/Trimethoprim [IJD: Sulfamethoxazole/Trimethoprim DS] 1 tab PO BID #20 tablet 08/04/17 [Rx] Patient Handouts: Cellulitis, Adult Forms: ED Department Discharge Referrals: Carlos Alicia MD [Primary Care Provider] - (Discuss having a TDaP vaccine.) - Discharge Summary/Plan Comment DC Time >30 min.: Yes (45 min) - General Info Date of Service: 08/04/17 Admission Dx/Problem (Free Text: SSTI/Cellulitis Functional Status: Reports: Pain Controlled, Tolerating Diet, Urinating. Denies : New Symptoms - Review of Systems General: Reports: No Symptoms. Denies: Fever HEENT: Reports: No Symptoms Pulmonary: Reports: No Symptoms. Denies: Shortness of Breath, Cough Cardiovascular: Reports: No Symptoms Gastrointestinal: Reports: No Symptoms. Denies: Abdominal Pain, Diarrhea, Nausea, Vomiting Genitourinary: Reports: No Symptoms Skin: Reports: Other (dressing CDI to LE) Psychiatric: Reports: No Symptoms - Patient Data Vitals - Most Recent: Last Vital Signs Temp 97.3 F 08/03/17 20:44 Pulse 102 H 08/03/17 20:44 Resp 20 08/03/17 20:44 BP 126/68 08/03/17 20:44 Pulse Ox 96 08/03/17 20:44 Weight - Most Recent: 421 lb 9.6 oz I&O - Last 24 hours: Intake & Output 08/03/17 08/04/17 08/04/17 22:59 06:59 14:59 Intake Total 940 1000 Output Total 1175 1400 Balance -235 -400 Lab Results - Last 24 hrs: Laboratory Results - last 24 hr 08/03/17 08/03/17 08/03/17 Range/Units 05:45 05:45 05:45 WBC 12.14 H (4.23-9.07) K/mm3 RBC 4.40 L (4.63-6.08) M/mm3 Hgb 11.9 L (13.7-17.5) gm/L Hct 36.4 L (40.1-51.0) % MCV 82.7 (79.0-92.2) fl MCH 27.0 (25.7-32.2) pg MCHC 32.7 (32.2-35.5) g/dl RDW Std Deviation 48.2 H (35.1-43.9) fL Plt Count 464 H (163-337) K/mm3 MPV 10.6 (9.4-12.3) fl Neut % (Auto) 70.1 H (34.0-67.9) % Lymph % (Auto) 16.1 L (21.8-53.1) % Hunt % (Auto) 10.7 (5.3-12.2) % Eos % (Auto) 2.1 (0.8-7.0) Baso % (Auto) 0.2 (0.1-1.2) % Neut # (Auto) 8.50 H (1.78-5.38) K/mm3 Lymph # (Auto) 1.96 (1.32-3.57) K/mm3 Hunt # (Auto) 1.30 H (0.30-0.82) K/mm3 Eos # (Auto) 0.25 (0.04-0.54) K/mm3 Baso # (Auto) 0.03 (0.01-0.08) K/mm3 Manual Slide Review Abnormal smear Sodium 135 L (136-145) mEq/L Potassium 4.3 (3.5-5.1) mEq/L Chloride 102 (98-107) mEq/L Carbon Dioxide 23 (21-32) mEq/L Anion Gap 14.3 (5-15) BUN 15 (7-18) mg/dL Creatinine 1.2 (0.7-1.3) mg/dL Est Cr Clr Drug Dosing 94.87 mL/min Estimated GFR (MDRD) > 60 (>60) mL/min BUN/Creatinine Ratio 12.5 L (14-18) Glucose 108 H (74-106) mg/dL Lactic Acid 0.7 (0.4-2.0) mmol/L Calcium 9.2 (8.5-10.1) mg/dL Magnesium 2.1 (1.8-2.4) mg/dl C-Reactive Protein 13.6 H* (<1.0) mg/dL EDDI Results - Last 24 hrs: Microbiology 07/27/17 21:10 Aerobic Blood Culture - Final Blood - Venous - Lab Draw NO GROWTH AFTER 7 DAYS Anaerobic Blood Culture - Final NO GROWTH AFTER 7 DAYS 07/27/17 19:48 Aerobic Blood Culture - Final Blood - Venous NO GROWTH AFTER 7 DAYS Anaerobic Blood Culture - Final NO GROWTH AFTER 7 DAYS Med Orders - Current: Current Medications Acetaminophen (Tylenol) 650 mg PO Q4H PRN PRN Reason: Pain (Mild 1-3)/fever Hydrocodone Bitart/Acetaminophen (Waldo 325-5 Mg) 1 tab PO Q4H PRN PRN Reason: Pain (moderate 4-6) Albuterol/Ipratropium (Duoneb 3.0-0.5 Mg/3 Ml) 3 ml NEB Q4H PRN PRN Reason: Shortness Of Breath/wheezing Baclofen (Lioresal) 0 mg PO ASDIRECTED PRN PRN Reason: PUMP IN PLACE Bisacodyl (Dulcolax) 5 mg PO DAILY PRN PRN Reason: Constipation Docusate Sodium (Colace) 100 mg PO BID PRN PRN Reason: Constipation Enoxaparin Sodium (Lovenox) 50 mg SUBCUT DAILY GEORGINA Last Admin: 08/03/17 09:08 Dose: 50 mg Hydralazine HCl (Apresoline) 20 mg IVPUSH Q4H PRN PRN Reason: Hypertension Hydromorphone HCl (Dilaudid) 1 mg IVPUSH Q4H PRN PRN Reason: Pain (severe 7-10) Promethazine HCl 12.5 mg/ (Sodium Chloride) 50.5 mls @ 100 mls/hr IV Q6H PRN PRN Reason: Nausea/Vomiting Lorazepam (Ativan) 2 mg IVPUSH Q4H PRN PRN Reason: Seizures Lorazepam (Ativan) 1 mg IV Q6H PRN PRN Reason: Anxiety Metoprolol Tartrate (Lopressor) 5 mg IVPUSH Q4H PRN PRN Reason: Tachycardia Neomycin/Polymyxin/Bacitracin (Neosporin Oint) 0 gm TOP DAILY@1030 GEORGINA Stop: 08/06/17 10:31 Last Admin: 08/03/17 11:27 Dose: 1 applic Ondansetron HCl (Zofran) 4 mg IV Q6H PRN PRN Reason: Nausea/Vomiting Dr. Guerrero's Pure (Epsom Salts) 0 each TOP DAILY@1000 GEORGINA Stop: 08/06/17 10:01 Last Admin: 08/03/17 11:27 Dose: 1 each Polyethylene Glycol (Miralax) 17 gm PO DAILY PRN PRN Reason: Constipation Senna/Docusate Sodium (Senna Plus) 1 tab PO BID PRN PRN Reason: Constipation Sertraline HCl (Zoloft) 25 mg PO BEDTIME ON LICENSE OF [facility] Last Admin: 08/03/17 20:48 Dose: Not Given Sodium Chloride (Saline Flush) 10 ml FLUSH ASDIRECTED PRN PRN Reason: Keep Vein Open Last Admin: 07/27/17 20:25 Dose: 10 ml Temazepam (Restoril) 15 mg PO BEDTIME PRN PRN Reason: Sleep Trimethoprim/Sulfamethoxazole (Septra Ds) 1 tab PO BID ON LICENSE OF [facility] Last Admin: 08/03/17 20:48 Dose: 1 tab Discontinued Medications Acetaminophen (Tylenol) 975 mg PO NOW ONE Stop: 07/27/17 19:05 Last Admin: 07/27/17 20:24 Dose: 975 mg Aluminum Sulfate/Calcium Acetate ([place] Powder) 2 each TOP DAILY@1000 GEORGINA Stop: 08/06/17 10:01 Last Admin: 07/31/17 10:21 Dose: 2 each Aluminum Sulfate/Calcium Acetate ([place] Powder) 1 each TOP DAILY@1000 GEORGINA Stop: 08/06/17 10:01 Bumetanide (Bumex) 0.5 mg IVPUSH ONETIME ONE Stop: 07/28/17 07:01 Last Admin: 07/28/17 08:25 Dose: 0.5 mg Bumetanide (Bumex) 1 mg IVPUSH ONETIME ONE Stop: 07/27/17 21:38 Last Admin: 07/27/17 22:25 Dose: 1 mg Bumetanide (Bumex) 1 mg IVPUSH ONETIME ONE Stop: 07/28/17 23:31 Last Admin: 07/28/17 23:47 Dose: 1 mg Bupivacaine HCl (Marcaine 0.5%) 30 ml INJECT ONETIME ONE Stop: 07/30/17 04:56 Last Admin: 07/30/17 11:22 Dose: 5 ml Bupivacaine HCl (Sensorcaine-Mpf 0.5%) 5 ml INJECT ONETIME ONE Stop: 07/30/17 09:31 Last Admin: 07/30/17 10:00 Dose: 5 ml Enoxaparin Sodium (Lovenox) 40 mg SUBCUT DAILY ON LICENSE OF [facility] Enoxaparin Sodium (Lovenox) 40 mg SUBCUT DAILY ON LICENSE OF [facility] Last Admin: 07/28/17 08:27 Dose: 40 mg Enoxaparin Sodium (Lovenox) 40 mg SUBCUT ONETIME ONE Stop: 07/27/17 21:21 Last Admin: 07/27/17 22:23 Dose: 40 mg Hydromorphone HCl (Dilaudid) 1 mg IVPUSH Q4H PRN PRN Reason: Pain (severe 7-10) Sodium Chloride (Normal Saline) 1,000 mls @ 125 mls/hr IV ASDIRECTED ON LICENSE OF [facility] Last Admin: 07/29/17 16:26 Dose: 125 mls/hr Vancomycin HCl 2 gm/ Sodium (Chloride) 250 mls @ 250 mls/hr IV ONETIME ONE Stop: 07/27/17 20:14 Last Admin: 07/27/17 20:44 Dose: Not Given Vancomycin HCl 2 gm/ Sodium (Chloride) 500 mls @ 250 mls/hr IV ONETIME ONE Stop: 07/27/17 22:44 Last Admin: 07/27/17 20:35 Dose: 250 mls/hr Sodium Chloride (Normal Saline) Confirm Administered Dose 500 mls @ as directed .ROUTE .STK-MED ONE Stop: 07/27/17 20:36 Last Admin: 07/28/17 10:56 Dose: Not Given Vancomycin HCl 2 gm/ Sodium (Chloride) 500 mls @ 250 mls/hr IV Q12H ON LICENSE OF [facility] Last Admin: 07/28/17 08:16 Dose: 250 mls/hr Vancomycin HCl 2 gm/ Sodium (Chloride) 500 mls @ 250 mls/hr IV Q8H ON LICENSE OF [facility] Last Admin: 07/29/17 15:12 Dose: Not Given Potassium Chloride 10 meq/ (Premix) 100 mls @ 100 mls/hr IV Q1H ON LICENSE OF [facility] Stop: 07/28/17 21:59 Potassium Chloride 10 meq/ (Premix) 100 mls @ 100 mls/hr IV Q1H ON LICENSE OF [facility] Stop: 07/28/17 23:59 Last Admin: 07/28/17 23:46 Dose: 100 mls/hr Vancomycin HCl 1 gm/Vancomycin HCl 500 mg/ Sodium Chloride 500 mls @ 250 mls/ hr IV Q8H ON LICENSE OF [facility] Last Admin: 07/29/17 15:12 Dose: Not Given Vancomycin HCl 1 gm/Vancomycin HCl 500 mg/ Sodium Chloride 500 mls @ 250 mls/ hr IV Q8H ON LICENSE OF [facility] Last Admin: 07/30/17 09:29 Dose: 250 mls/hr Magnesium Sulfate 2 gm/ Premix 50 mls @ 25 mls/hr IV ONETIME ONE Stop: 07/31/17 17:56 Last Admin: 07/31/17 16:32 Dose: 25 mls/hr Lidocaine HCl (Xylocaine 1%) 20 ml INJECT ONETIME ONE Stop: 07/30/17 04:59 Last Admin: 07/30/17 11:22 Dose: 5 ml Lidocaine HCl (Xylocaine 1%) 5 ml INJECT ONETIME ONE Stop: 07/30/17 09:31 Last Admin: 07/30/17 10:00 Dose: 5 ml Magnesium Sulfate (Pharmacy To Dose - Magnesium Replacement) 0 dose .XX ASDIRECTED PRN PRN Reason: RX TO WATCH MAG LEVELS Potassium Chloride (Pharmacy To Dose - Potassium Replacement) 0 dose .XX ASDIRECTED PRN PRN Reason: RX TO WATCH K LEVELS Potassium Chloride (Klor-Con M20) 40 meq PO Q4H ON LICENSE OF [facility] Stop: 07/29/17 13:46 Last Admin: 07/29/17 13:27 Dose: 40 meq Potassium Chloride (Klor-Con M20) 40 meq PO BID ON LICENSE OF [facility] Stop: 07/31/17 09:01 Last Admin: 07/31/17 09:10 Dose: 40 meq Vancomycin HCl (Vancomycin) 3,061.755 mg 15 mg/kg (3061.755 mg) IV Q12H ON LICENSE OF [facility] Vancomycin HCl (Pharmacy To Dose - Vancomycin) 0 dose .XX ASDIRECTED PRN PRN Reason: RX TO DOSE VANCOMYCIN - Exam Quality Assessment: Reports: DVT Prophylaxis General: Reports: Alert, Oriented, Cooperative, No Acute Distress HEENT: Reports: Pupils Equal, EOMI, Mucous Membr. Moist/[place] Neck: Reports: Supple Lungs: Reports: Clear to Auscultation, Normal Respiratory Effort, Decreased Breath Sounds Cardiovascular: Reports: Regular Rate, Regular Rhythm (Male) Exam: Deferred Rectal (Males) Exam: Deferred Extremities: Other (dressing CDI to LE) Psy/Mental Status: Reports: Alert, Normal Affect, Normal Mood
[2017-08-04] MEDS: Sulfamethoxazole/Trimethoprim 800-160 MG Tab PO SCH (09:06)
[2017-08-04] MEDS: Enoxaparin 60 MG/0.6 ML Syringe SUBCUT SCH (09:06)
== END 2017-08-04 10:15 | DRG 603 ==
LOC: JD.ED 17:43 → SUPCPDRO 17:43 → JD.MS 20:34
PROVIDERS: ADMIT Internal Medicine; ATTEND Internal Medicine
PROC: 05HY33Z Insertion of Infusion Device into Upper Vein, Percutaneous Approach (ICD-10-PCS; principal; 2017-07-28)
PROC: 0HBRXZZ Excision of Toe Nail, External Approach (ICD-10-PCS; 2017-07-30)
DX: L03.115 Cellulitis of right lower limb (principal); Z68.43 Body mass index [BMI] 50.0-59.9, adult; E66.01 Morbid (severe) obesity due to excess calories; E88.09 Other disorders of plasma-protein metabolism, not elsewhere classified; E87.6 Hypokalemia; L60.0 Ingrowing nail; S14.109S Unspecified injury at unspecified level of cervical spinal cord, sequela; X58.XXXS Exposure to other specified factors, sequela; G83.9 Paralytic syndrome, unspecified; G89.29 Other chronic pain; Z87.891 Personal history of nicotine dependence; M62.830 Muscle spasm of back; Z79.82 Long term (current) use of aspirin; Z79.899 Other long term (current) drug therapy
CPT/HCPCS: 36415; 80048; 80053; 80202; 83036; 83605; 83735; 84439; 84443; 85025; 86140; 87040; 87070; 93971-26-RT; 93971-RT; 97110-GO; 97110-GP; 97140-GO; 97140-GP; 97162-GP; 97167-GO; 97530-GO; 97530-GP; 97597-GP; 99284; 99285; A9270-GY; C1751; J1650; J3370; J3475; J3480; J7040; J7050

== ENCOUNTER 2017-09-01 01:16 | Emergency (ER) | payer OTHER, MEDICARE, MEDICAID ==
[2017-09-01] MEDS ORDERED: Sodium Chloride 0.9% 10 ML Syringe FLUSH PRN (01:53)
--- NOTE | 2017-09-01 02:02 | EDM.PDOC ---
ED HPI GENERAL MEDICAL PROBLEM - General Chief Complaint: Respiratory Problem Stated Complaint: SOB/BODY TIGHTNESS Time Seen by Provider: 09/01/17 01:34 Source of Information: Reports: Patient, Family History Limitations: Reports: No Limitations - History of Present Illness INITIAL COMMENTS - FREE TEXT/NARRATIVE: The patient presents by private vehicle for shortness of breath and tightness everywhere. This started last night. He was admitted here about a month ago for cellulitis of his right leg. He is done with all of his antibiotics now. He has swelling to both legs but the right is worse. He is worried the infection never left. He feels tight all over. He has tightness in his chest and shortness of breath. He has tightness in his arms and legs and abdomen and back. He has no fever or chills. He has a history of cervical spine injury with partial paralysis. He has a motorized wheel chair. Onset: Gradual Duration: Day(s): (Last night) Location: Reports: Generalized Quality: Reports: Other (Tightness) Severity: Moderate Improves with: Reports: None Worsens with: Reports: None Associated Symptoms: Reports: Chest Pain, Shortness of Breath. 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 Has sensation and can stand to transfer self Dermatologic History: Reports: Chronic Cellulitis - Past Surgical History Neurological Surgical History: Reports: C-Spine Other Neurological Surgeries/Procedures: patient had injury in 2005 to his c3-c7 Social & Family History - Family History Family Medical History: Noncontributory - Tobacco Use Smoking Status *Q: Former Smoker Used Tobacco, but Quit: Yes Month/Year Tobacco Last Used: 1 Second Hand Smoke Exposure: No - Caffeine Use Caffeine Use: Reports: Soda - Recreational Drug Use Recreational Drug Use: No ED ROS GENERAL - Review of Systems Review Of Systems: See Below Constitutional: Reports: No Symptoms HEENT: Reports: No Symptoms Respiratory: Reports: Shortness of Breath Cardiovascular: Reports: Chest Pain Endocrine: Reports: No Symptoms GI/Abdominal: Reports: Abdominal Pain. Denies: Nausea, Vomiting Musculoskeletal: Reports: Muscle Stiffness (Tightness) ED EXAM, GENERAL - Physical Exam Exam: See Below Exam Limited By: No Limitations General Appearance: Alert, Moderate Distress (He is anxious) Ears: Normal External Exam Nose: Normal Inspection Head: Atraumatic, Normocephalic Neck: Normal Inspection Respiratory/Chest: No Respiratory Distress, Decreased Breath Sounds Cardiovascular: Regular Rate, Rhythm, No Murmur GI/Abdominal: Soft, Non-Tender, No Organomegaly, No Mass, Other (Obese) Extremities: Other (Moderate edema to both legs with more edema to the right leg ) Neurological: Alert, Oriented ED RESPIRATORY PROCEDURES - Endotracheal Intubation ET Intubation Indication: Cardiac Arrest Preparation: Suction, Balloon Tested, BVM Set Up, Difficult Airway Equip Airway Assessment: Obese Pre-Oxygenation: Assisted with BVM, 100% FiO2 Placement: Orotracheal, Cuffed, Uncomplicated Placement Cords Visualized: Yes Number of Attempts: 1 Confirmed By: Bilateral Breath Sounds Tube Secured By: By RT EKG INTERPRETATION EKG Date: 09/01/17 Time: 01:57 Rhythm: NSR Rate (Beats/Min): 93 Shelby: LAD-Left Shelby Deviation P-Wave: Present QRS: RBBB ST-T: Depressed (ST depression in the anteriorlateral leads) QT: Normal Course - Vital Signs Last Recorded V/S: Last Vital Signs Temp 97.6 F 09/01/17 01:22 Pulse 100 09/01/17 01:22 Resp 37 H 09/01/17 01:22 BP 141/129 H 09/01/17 01:22 Pulse Ox 93 L 09/01/17 01:54 - Orders/Labs/Meds Orders: Active Orders 24 hr Category Date Time Status Cardiac Monitoring [RC] . DIRECTED Care 09/01/17 01:54 Active EKG Documentation Completion [RC] STAT Care 09/01/17 01:54 Active Oxygen Therapy [RC] PRN Care 09/01/17 01:54 Active Peripheral IV Care [RC] . DIRECTED Care 09/01/17 01:54 Active Chest 1V Frontal [CR] Stat Exams 09/01/17 01:55 Taken CULTURE BLOOD [BC] Stat Lab 09/01/17 02:25 Received Sodium Chloride 0.9% [Saline Flush] Med 09/01/17 01:53 Active 10 ml FLUSH ASDIRECTED PRN Blood Culture x2 Reflex Set [OM.PC] Stat Oth 09/01/17 02:08 Ordered Peripheral IV Insertion Adult [OM.PC] Stat Oth 09/01/17 01:53 Ordered Medication Orders Sodium Chloride (Saline Flush) 10 ml FLUSH ASDIRECTED PRN PRN Reason: Keep Vein Open Last Admin: 09/01/17 02:33 Dose: 10 ml Labs: Laboratory Tests 09/01/17 09/01/17 09/01/17 Range/Units 02:25 02:25 02:25 WBC 16.46 H (4.23-9.07) K/mm3 RBC 5.40 (4.63-6.08) M/mm3 Hgb 14.2 (13.7-17.5) gm/L Hct 46.0 (40.1-51.0) % MCV 85.2 (79.0-92.2) fl MCH 26.3 (25.7-32.2) pg MCHC 30.9 L (32.2-35.5) g/dl RDW Std Deviation 52.9 H (35.1-43.9) fL Plt Count 274 (163-337) K/mm3 MPV 11.5 (9.4-12.3) fl Neut % (Auto) 68.3 H (34.0-67.9) % Lymph % (Auto) 23.6 (21.8-53.1) % Eddy % (Auto) 6.9 (5.3-12.2) % Eos % (Auto) 0.3 L (0.8-7.0) Baso % (Auto) 0.1 (0.1-1.2) % Neut # (Auto) 11.25 H (1.78-5.38) K/mm3 Lymph # (Auto) 3.88 H (1.32-3.57) K/mm3 Eddy # (Auto) 1.13 H (0.30-0.82) K/mm3 Eos # (Auto) 0.05 (0.04-0.54) K/mm3 Baso # (Auto) 0.02 (0.01-0.08) K/mm3 Manual Slide Review Abnormal smear Sodium 133 L (136-145) mEq/L Potassium 4.7 (3.5-5.1) mEq/L Chloride 97 L (98-107) mEq/L Carbon Dioxide 15 L (21-32) mEq/L Anion Gap 25.7 H (5-15) BUN 17 (7-18) mg/dL Creatinine 2.6 H (0.7-1.3) mg/dL Est Cr Clr Drug Dosing 43.78 mL/min Estimated GFR (MDRD) 27 (>60) mL/min BUN/Creatinine Ratio 6.5 L (14-18) Glucose 261 H (74-106) mg/dL Lactic Acid (0.4-2.0) mmol/L Calcium 10.0 (8.5-10.1) mg/dL Total Bilirubin 0.6 (0.2-1.0) mg/dL AST 41 H (15-37) U/L ALT 35 (16-63) U/L Alkaline Phosphatase 95 (46-116) U/L Troponin I 0.536 H* (0.00-0.056) ng/mL NT-Pro-B Natriuret Pep 28263 H (0-125) pg/mL Total Protein 10.3 H (6.4-8.2) g/dl Albumin 3.0 L (3.4-5.0) g/dl Globulin 7.3 gm/dL Albumin/Globulin Ratio 0.4 L (1-2) 09/01/ Range/Units 02:25 WBC (4.23-9.07) K/mm3 RBC (4.63-6.08) M/mm3 Hgb (13.7-17.5) gm/L Hct (40.1-51.0) % MCV (79.0-92.2) fl MCH (25.7-32.2) pg MCHC (32.2-35.5) g/dl RDW Std Deviation (35.1-43.9) fL Plt Count (163-337) K/mm3 MPV (9.4-12.3) fl Neut % (Auto) (34.0-67.9) % Lymph % (Auto) (21.8-53.1) % Eddy % (Auto) (5.3-12.2) % Eos % (Auto) (0.8-7.0) Baso % (Auto) (0.1-1.2) % Neut # (Auto) (1.78-5.38) K/mm3 Lymph # (Auto) (1.32-3.57) K/mm3 Eddy # (Auto) (0.30-0.82) K/mm3 Eos # (Auto) (0.04-0.54) K/mm3 Baso # (Auto) (0.01-0.08) K/mm3 Manual Slide Review Sodium (136-145) mEq/L Potassium (3.5-5.1) mEq/L Chloride (98-107) mEq/L Carbon Dioxide (21-32) mEq/L Anion Gap (5-15) BUN (7-18) mg/dL Creatinine (0.7-1.3) mg/dL Est Cr Clr Drug Dosing mL/min Estimated GFR (MDRD) (>60) mL/min BUN/Creatinine Ratio (14-18) Glucose (74-106) mg/dL Lactic Acid 12.2 H (0.4-2.0) mmol/L Calcium (8.5-10.1) mg/dL Total Bilirubin (0.2-1.0) mg/dL AST (15-37) U/L ALT (16-63) U/L Alkaline Phosphatase (46-116) U/L Troponin I (0.00-0.056) ng/mL NT-Pro-B Natriuret Pep (0-125) pg/mL Total Protein (6.4-8.2) g/dl Albumin (3.4-5.0) g/dl Globulin gm/dL Albumin/Globulin Ratio (1-2) Meds: Medications Generic Name Dose Route Start Last Admin Trade Name Freq PRN Reason Stop Dose Admin Sodium Chloride 10 ml 09/01/17 01:53 09/01/17 02:33 Saline Flush FLUSH 10 ml ASDIRECTED PRN Administration Keep Vein Open Discontinued Medications Generic Name Dose Route Start Last Admin Trade Name Freq PRN Reason Stop Dose Admin Lorazepam 0.5 mg 09/01/17 02:08 09/01/17 02:16 Ativan IVPUSH 09/01/17 02:09 0.5 mg ONETIME ONE Administration Lorazepam 0.5 mg 09/01/17 02:29 09/01/17 02:31 Ativan IVPUSH 09/01/17 02:30 0.5 mg ONETIME ONE Administration - Re-Assessments/Exams Free Text/Narrative Re-Assessment/Exam: 09/01/17 02:03 I ordered an IV saline lock, EKG, CXR, and labs. 09/01/17 04:38 His CXR shows cardiomegaly and poor inspiration but nothing acute. His EKG shows a RBBB with some ST depression and a NSR. His WBC came back elevated at 16.46. He was anxious so I ordered 2 doses of 0.5mg ativan. My nurse asked me to come check on the patient because he did not look good. Before I got to the room, she called a code blue. The patient lost his pulse and he was not breathing. CPR was started right away. He was hooked up to the defibrilator and it showed v-fib. He was defibrilated and CPR was resumed. I then ordered epinephrine 1mg IV and amiodarone 300mg IV. We did get a pulse back. I then intubated the patient and were inserted an NG and zacarias cath. I also ordered an amiodarone drip. I was worried about a PE so I was going to send him to the CT scanner. I also activated [employer] to fly to [place]. I also updated his sister about what happened. He then lost a pulse again. We continued with CPR and he was in PEA. We gave multiple doses of epinephrine and we even tried bicarb. We would get a pulse and lose it again. We did this a few times. We also started an IO in his left leg. I gave him fluids and started a dopamine drip at one time when he did get a pulse back. He was trying to breath a couple times when we got a pulse back so I gave him versed a few times. I talked to the family again and we agreed we would keep trying. After over an hour of effort we lost a pulse again and we could not get him back. He went into asystole. He was pronounced at 0353. His Na was low at 133. His anion gap was elevated at 25.7. His creatinine was elevated at 2.6. When he was discharged last month it was 1.2. His glucose was 261. His lactic acid was very elevated at 12.2. His troponin was elevated at 0.536. His BNP was very elevated at 14,339. It appears he had a heart attack and then went into cardiac arrest. [facility] and he released the [facility]. I talked to his family and I let them go see the patient. 09/01/17 04:52 Critical care time 80 minutes. Departure - Departure Time of Disposition: 04:55 Disposition: 20 Preliminary Cause of *Q: Cardiac Arrest Condition: Critical Clinical Impression: Morbid obesity with BMI of 50.0-59.9, adult, Renal insufficiency, Non-STEMI ( non-ST elevated myocardial infarction) Leukocytosis Qualifiers: Leukocytosis type: unspecified Qualified Code(s): D72.829 - Elevated white blood cell count, unspecified - Discharge Information Referrals: Carlos Alicia MD [Primary Care Provider] - Forms: ED Department Discharge - My Orders Last 24 Hours: My Active Orders 09/01/17 01:53 Sodium Chloride 0.9% [Saline Flush] 10 ml FLUSH ASDIRECTED PRN Peripheral IV Insertion Adult [OM.PC] Stat 09/01/17 01:54 Cardiac Monitoring [RC] . DIRECTED EKG Documentation Completion [RC] STAT Oxygen Therapy [RC] PRN Peripheral IV Care [RC] . DIRECTED 09/01/17 01:55 Chest 1V Frontal [CR] Stat 09/01/17 02:08 Blood Culture x2 Reflex Set [OM.PC] Stat 09/01/17 02:25 CULTURE BLOOD [BC] Stat - Assessment/Plan Last 24 Hours: My Active Orders 09/01/17 01:53 Sodium Chloride 0.9% [Saline Flush] 10 ml FLUSH ASDIRECTED PRN Peripheral IV Insertion Adult [OM.PC] Stat 09/01/17 01:54 Cardiac Monitoring [RC] . DIRECTED EKG Documentation Completion [RC] STAT Oxygen Therapy [RC] PRN Peripheral IV Care [RC] . DIRECTED 09/01/17 01:55 Chest 1V Frontal [CR] Stat 09/01/17 02:08 Blood Culture x2 Reflex Set [OM.PC] Stat 09/01/17 02:25 CULTURE BLOOD [BC] Stat
[2017-09-01] MEDS ORDERED: LORazepam 2 MG/ML SDV IVPUSH ONE ×2 (02:08→02:29)
[2017-09-01] MEDS ORDERED: EPINEPHrine 1:10,000 1 MG/10 ML Syringe ONE (02:30)
[2017-09-01] MEDS ORDERED: Sodium Bicarbonate 8.4% 50 MEQ/50 ML Syringe ONE (02:30)
[2017-09-01] MEDS ORDERED: Midazolam 1 MG/ML 5 ML SDV ONE (02:30)
[2017-09-01] MEDS ORDERED: Atropine 0.1 MG/ML 10 ML Syringe ONE (02:30)
[2017-09-01] MEDS ORDERED: Amiodarone 150 MG/3 ML SDV ONE (02:30)
[2017-09-01] MEDS ORDERED: Amiodarone/Dextrose,Iso-Osmotic 360 MG/200 ML Premix Bag ONE (02:30)
--- NOTE | 2017-09-01 07:37 | CR ---
Chest: Frontal view of the chest was obtained. Comparison: No previous chest x-ray. Heart size and mediastinum are normal. Minimal atelectasis is seen above the left hemidiaphragm. Lungs otherwise are clear. Degenerative endplate spurring is seen within the spine with minimal scoliosis. Impression: 1. Incidental findings. Nothing acute is identified on frontal chest x-ray. Diagnostic code #2
== END 2017-09-01 06:45 | disposition expired ==
LOC: JD.ED 01:16
DX: I21.4 Non-ST elevation (NSTEMI) myocardial infarction (principal); N28.9 Disorder of kidney and ureter, unspecified; D72.829 Elevated white blood cell count, unspecified; E66.8 Other obesity; Z68.43 Body mass index [BMI] 50.0-59.9, adult; Z79.82 Long term (current) use of aspirin; Z87.891 Personal history of nicotine dependence
CPT/HCPCS: 31500; 36415; 36680; 51702; 71045; 80053; 83605; 83880; 84484; 85025; 87040; 92950; 92960; 93005; 94762; 96361; 96365; 96368; 96374; 96375; 96376; 99291; 99292; J0171; J0282; J0461; J1265; J2060; J2250; J7050; 93010